=== PATIENT | female | born 1955 | race Caucasian/White ===

== ENCOUNTER → 2018-05-24 10:46 | Outpatient (CLI) | payer OTHER, SELFPAY ==
--- NOTE | 2018-05-24 | DI.ECHO.S_ITS ---
[facility]+ [facility] +---------+ : : [address] [place] : : : : [id number] : : : : Phone: [phone]+ Echocardiogram Report + + :Name: ASHLEY CHONG Study Date: 05/24/2018 Height: 68 in : :[facility] Exam Location: IS Weight: 255 lb : : Gender: Female BSA: 2.3 m2 : :: 1955 Age: 62 yrs BP: 145/78 mmHg: :Reason For Study: DILATED CM : : Performed By: Demetrius Rodriguez : :Referring: SHERICE RODRIGUEZ : + + Interpretation Summary Limited echo to evaluate wall motion. Afib with controlled rate. Normal LV size; normal wall thickness. There is global hypokinesis. EF is estimated at 40-45%. No significant valvular abnormalities. There is a pacing lead traversing the tricuspid valve. Compared to prior complete echo performed 12/06/2017, LV function is much better, up from 15-20% to 40-45% Procedure: A two-dimensional transthoracic echocardiogram with color flow and Doppler was performed. The study quality was technically adequate. Comparison is made with the echocardiogram of 02/07/18. The patient has a paced rhythm. Left Ventricle: The left ventricle is normal in size. There is normal left ventricular wall thickness. The ejection fraction is estimated to be 40-45%. There is a mild dyssynchronous contraction pattern due to the paced rhythm. Right Ventricle: The right ventricle is normal size. There is a pacemaker lead in the right ventricle. Right ventricular systolic function is mildly reduced. Aortic Valve: The aortic valve opens well. Tricuspid Valve: The tricuspid valve is not well visualized, but is grossly normal. There is trace tricuspid regurgitation. The right ventricular systolic pressure is estimated at 25 mmHg assuming a right atrial pressure of 3 mm Hg. MMode/2D Measurements & Calculations LVIDd: 5.0 cm IVC diam: 1.4 cm LVIDs: 3.5 cm FS: 28.7 % IVSd: 1.0 cm LVPWd: 0.97 cm LV harvey. diameter/BSA (cm/m^2): 2.2 LV sys. diameter/BSA (cm/m^2): 1.6 Doppler Measurements & Calculations TR max porfirio: 234.3 cm/sec TR max P.0 mmHg Reading Physician:08:47 AM
== END ==
PROVIDERS: PCP Family Medicine; Visit Provider Internal Medicine Cardiovascular Disease
DX: I42.0 Dilated cardiomyopathy (principal); I48.91 Unspecified atrial fibrillation; Z95.0 Presence of cardiac pacemaker
CPT/HCPCS: 93307

== ENCOUNTER 2018-09-26 08:13 | Emergency (ER) | payer OTHER, SELFPAY ==
[2018-09-26] VITALS (18 sets, daily range): BP systolic 116–173; BP diastolic 37–96; PULSE 36–67; RESP 10–18; TEMP 36.7; O2SAT 96–100; BMI 39.1
--- NOTE | 2018-09-26 08:17 | DI.RAD.S_ITS ---
PROCEDURE: XR CHEST 1V INDICATIONS: chest pain TECHNIQUE: One view of the chest was acquired. COMPARISON: [facility], CR, XR CHEST 2V, 03/05/2018, 14:50. [facility], CR, XR CHEST 2 VIEWS, 03/29/2018, 6:46. [facility], CR, XR CHEST 1 VIEW, 03/28/2018, 19:21. FINDINGS: Surgical changes and devices: There is a pacemaker/defibrillator. The interval cardiac pacemaker lead has migrated away from the cardiac apex. Lungs and pleura: No pleural effusions or pneumothorax. Lungs are clear. Mediastinum: Mediastinal contours appear normal. Heart size is mildly increased. Bones and chest wall: No suspicious bony lesions. Overlying soft tissues appear unremarkable. IMPRESSION: 1. No acute cardiopulmonary disease. 2. Pacemaker lead appears changed in position since the last exam with the intracardiac lead no longer projects into the left ventricle apex. Please confirm desired position with cardiology. 3. Mild cardiomegaly. The result was discussed with Dr. Darlene RODRIGUEZ prior to dictation. Dictated by: Rhiannon Narvaez M.D. on 09/26/2018 at 9:31 Approved by: Rhiannon Narvaez M.D. on 09/26/2018 at 9:37
--- NOTE | 2018-09-26 08:21 | ED_ITS ---
HPI - Arrhythmia/Palpitations General Chief Complaint: Arrhythmia/Palpitations Stated Complaint: A Fib Time Seen by Provider: 09/26/18 08:16 Source: patient and EMS Mode of arrival: EMS Limitations: no limitations History of Present Illness HPI narrative: Patient is a 62-year-old female who presents after her defibrillator went off 3 times today. She actually has had an ablation for AFib and has had 2 pacemakers placed placed. Her heart rate now 39-42. She feels weak and tired she has a bit of chest discomfort. No fever or cough. Related Data Home Medications Medication Instructions Recorded Confirmed cetirizine 10 mg PO DAILY PRN #0 05/29/17 09/26/18 metformin [Glucophage] 500 mg PO QPM 09/26/18 09/26/18 metoprolol succinate [Toprol XL] 25 mg PO BID 09/26/18 09/26/18 Previous Rx's Medication Instructions Recorded celecoxib [Celebrex] 200 mg PO 0800 PRN #30 cap 12/09/17 glimepiride 2 mg PO QAM #90 tab 01/15/18 warfarin 5 mg tablet 5 mg PO SEE INSTRUCTIONS #90 tab 08/15/18 Allergies Allergy/AdvReac Type Severity Reaction Status Date / Time influenza virus vaccine, Allergy Mild non stated Verified 09/26/18 08:18 specific [INFLUENZA VIRUS VACC,SPECIFIC] iodine [IODINE] Allergy Mild IVP DYE, Verified 09/26/18 08:18 none stated pneumococcal vaccine Allergy Mild non stated Verified 09/26/18 08:18 [PNEUMOCOCCAL VACCINE] Sulfa (Sulfonamide Allergy Mild rash,vomiti Verified 09/26/18 08:18 Antibiotics) ng [SULFA (SULFONAMIDE ANTIBIOTICS)] vancomycin [VANCOMYCIN] Allergy Mild Rash Verified 09/26/18 08:18 acetaminophen [ACETAMINOPHEN] Allergy Unknown Verified 09/26/18 08:18 Review of Systems Review of Systems All systems reviewed & are unremarkable except as noted in HPI and below Constitutional Denies chills, Denies fever(s), Denies lethargy and Denies weakness ENT Ears, Nose, Mouth, and Throat: Denies vertigo and Denies dizziness Cardiovascular Reports as per HPI, Denies dyspnea and Denies dyspnea on exertion Respiratory Denies cough, Denies dyspnea, Denies dyspnea on exertion and Denies wheezing Gastrointestinal Gastrointestinal: Denies abdominal pain, Denies change in bowel habits, Denies diarrhea, Denies nausea and Denies vomiting Musculoskeletal Denies back pain, Denies muscle weakness, Denies numbness and Denies tingling Integumentary/Breasts Denies pruritus, Denies erythema, Denies rash and Denies wounds Neurologic Denies vertigo, Denies dizziness, Denies numbness, Denies tingling and Denies weakness Allergic/Immunologic Denies wheezing PFSH Medical History Presence of combination internal cardiac defibrillator (ICD) and pacemaker ( Acute) Atrial fibrillation (Acute) Fibromyalgia (Acute) Hypertension (Acute) Hypothyroid (Acute) Social History Smoking Status: Never smoker alcohol intake: never substance use type: does not use Exam Initial Vital Signs Initial Vital Signs: Vital Signs Temperature 98.1 F 09/26/18 08:19 Pulse Rate 67 09/26/18 08:19 Respiratory Rate 18 09/26/18 08:19 Blood Pressure 148/96 H 09/26/18 08:19 Pulse Oximetry 99 09/26/18 08:19 Const General: cooperative and healthy appearing Orientation: alert, awake and oriented x3 HENMT Head: normal to inspection and normocephalic Eyes General: appearance normal, both eyes and all related structures Neck Neck: normal visual inspection, full ROM and no meningeal signs Chest Chest: normal inspection of the chest and pacemaker Resp Effort & Inspection: normal respiratory effort and able to speak in complete sentences Auscultation: clear to auscultation bilaterally, no rales, no rhonchi and no wheezes Cardio Rate: bradycardic Rhythm: abnormal rhythm Heart Sounds: S1 normal, S2 normal, no click, no gallops, no murmurs and no rubs Pulses: normal peripheral pulses GI Palpation: soft, No firm, No rigid and No tender Skin General: no rashes or lesions noted, No jaundice and No petechiae Neuro General: alert, oriented x3, gait normal and no focal motor deficits Speech: speech normal Course Orders Ordered: ED Orders 09/26/18 08:17 XR chest 1V Stat EKG-12 Lead Stat 09/26/18 08:25 Complete Blood Count AUTO DIFF Stat Comprehensive Metabolic Panel Stat Lipase Stat Partial Thromboplastin Time Stat Prothrombin Time INR Stat Troponin & CK Cardiac Panel Stat 09/26/18 14:10 UA dip and micro [Urinalysis and Microscopic] Stat Sodium Chloride (Normal Saline 0.9%) 1,000 mls @ 30 mls/hr IV CONT KLARISSA Last Admin: 09/26/18 08:40 Dose: 150 mls/hr Discontinued Medications Atropine Sulfate (Atropine) 0.5 mg IV NOW ONE Stop: 09/26/18 09:04 Last Admin: 09/26/18 09:08 Dose: 0.5 mg Atropine Sulfate (Atropine) 0.5 mg IV NOW ONE Stop: 09/26/18 09:07 Last Admin: 09/26/18 11:18 Dose: 0.5 mg Ibuprofen (Advil) 400 mg PO NOW ONE Stop: 09/26/18 09:25 Last Admin: 09/26/18 10:08 Dose: 400 mg Ibuprofen (Advil) 400 mg PO NOW ONE Stop: 09/26/18 09:30 Last Admin: 09/26/18 10:08 Dose: Vital Signs - 8 hr 09/26/18 08:19 09/26/18 08:30 09/26/18 08:54 Temperature 98.1 F Pulse Rate 67 42 L 39 L Respiratory Rate 18 15 16 Blood Pressure 148/96 H Blood Pressure [Left Arm] Blood Pressure [Right Arm] 159/50 H 155/50 H Pulse Oximetry 99 99 100 09/26/18 09:00 09/26/18 09:11 09/26/18 09:30 Temperature Pulse Rate 39 L 55 L 38 L Respiratory Rate 17 10 L 18 Blood Pressure Blood Pressure [Left Arm] 159/66 H 173/45 H 156/68 H Blood Pressure [Right Arm] Pulse Oximetry 100 100 100 09/26/18 09:48 09/26/18 10:09 09/26/18 10:55 Temperature Pulse Rate 38 L 37 L 36 L Respiratory Rate 18 15 17 Blood Pressure Blood Pressure [Left Arm] 156/68 H 139/64 137/53 L Blood Pressure [Right Arm] Pulse Oximetry 99 99 100 09/26/18 11:00 09/26/18 11:43 09/26/18 12:00 Temperature Pulse Rate 37 L 39 L 36 L Respiratory Rate 17 15 17 Blood Pressure Blood Pressure [Left Arm] 122/44 L 121/37 L 125/46 L Blood Pressure [Right Arm] Pulse Oximetry 100 100 100 09/26/18 12:10 09/26/18 13:30 09/26/18 13:50 Temperature Pulse Rate 40 L 37 L 37 L Respiratory Rate 15 16 17 Blood Pressure Blood Pressure [Left Arm] 173/45 H 124/46 L 116/94 H Blood Pressure [Right Arm] Pulse Oximetry 100 98 98 09/26/18 14:19 09/26/18 14:30 09/26/18 15:09 Temperature Pulse Rate 37 L 38 L 37 L Respiratory Rate 15 15 17 Blood Pressure Blood Pressure [Left Arm] 116/94 H 141/61 H 138/53 L Blood Pressure [Right Arm] Pulse Oximetry 97 97 96 MDM - Arrhythmia/Palpitations Lab Data Attestation: I reviewed the patient's lab results. Result diagrams: 09/26/18 08:25 09/26/18 08:25 Lab Results 09/26/18 09/26/18 09/26/18 Range/Units 08:25 08:25 08:25 WBC 6.3 (4.5-11.0) X10^3/uL RBC 4.91 (4.0-5.2) X10^6/uL Hgb 16.1 H (12.0-16.0) g/dL Hct 47.9 H (36-46) % MCV 97.7 (80-100) fL MCH 32.8 (26-34) PG MCHC 33.6 (30-36) % RDW 13.6 (11.6-14.8) % Plt Count 168 (150-400) X10^3/uL Neut % (Auto) 69.3 (50-75) % Lymph % (Auto) 22.9 L (25-40) % Morehouse % (Auto) 6.4 (3-14) % Eos % (Auto) 0.7 L (2-4) % Baso % (Auto) 0.7 (0-2) % Neut # (Auto) 4400 (9743-5955) /uL PT 22.4 H (10.1-12.7) SECONDS INR 1.9 H (0.9-1.3) APTT 37 H (26.4-36.2) SECONDS Sodium 140 (137-145) mmol/L Potassium 4.7 (3.4-5.1) mmol/L Chloride 105 (98-107) mmol/L Carbon Dioxide 22 (22-32) mmol/L BUN 17 (7-17) mg/dL Creatinine 1.00 (0.52-1.04) mg/dL Estimated GFR 56.2 L (>60) mL/min BUN/Creatinine Ratio 17.0 (6-22) Glucose 170 H (80-110) mg/dL Calcium 9.7 (8.4-10.2) mg/dL Total Bilirubin 0.6 (0.2-1.3) mg/dL AST 36 (14-36) IU/L ALT 38 (9-52) IU/L Alkaline Phosphatase 119 (38-126) U/L Total Creatine Kinase 101 (30-135) U/L CK-MB (CK-2) 2.91 H (<2.37) ng/mL CK-MB (CK-2) Rel Index 2.9 (1.5-5.0) % Troponin I 0.046 H (0.01-0.034) ng/mL Total Protein 7.2 (6.3-8.2) g/dL Albumin 4.3 (3.5-5.0) g/dL Globulin 2.9 (1.7-4.1) g/dL Albumin/Globulin Ratio 1.5 (1.0-2.8) Lipase 105 (23-300) U/L Urine Color Urine Appearance Urine pH (4.5-8.0) Ur Specific Francisco (1.000-1.035) Urine Protein (Negative) Urine Glucose (UA) (Normal) g/dL Urine Ketones (NEGATIVE) Urine Occult Blood (Negative) Urine Nitrate (Negative) Urine Bilirubin (NEGATIVE) Urine Urobilinogen (0.2) E.U./dL Ur Leukocyte Esterase (NEGATIVE) Urine RBC (0-5/HPF) Urine WBC (0-5/HPF) Ur Squamous Epith Cells Amorphous Sediment Urine Bacteria (None) Urine Mucus (Negative) Ur Culture Indicated? Micro UA Comment 09/26/18 Range/Units 14:10 WBC (4.5-11.0) X10^3/uL RBC (4.0-5.2) X10^6/uL Hgb (12.0-16.0) g/dL Hct (36-46) % MCV (80-100) fL MCH (26-34) PG MCHC (30-36) % RDW (11.6-14.8) % Plt Count (150-400) X10^3/uL Neut % (Auto) (50-75) % Lymph % (Auto) (25-40) % Morehouse % (Auto) (3-14) % Eos % (Auto) (2-4) % Baso % (Auto) (0-2) % Neut # (Auto) (0209-3041) /uL PT (10.1-12.7) SECONDS INR (0.9-1.3) APTT (26.4-36.2) SECONDS Sodium (137-145) mmol/L Potassium (3.4-5.1) mmol/L Chloride (98-107) mmol/L Carbon Dioxide (22-32) mmol/L BUN (7-17) mg/dL Creatinine (0.52-1.04) mg/dL Estimated GFR (>60) mL/min BUN/Creatinine Ratio (6-22) Glucose (80-110) mg/dL Calcium (8.4-10.2) mg/dL Total Bilirubin (0.2-1.3) mg/dL AST (14-36) IU/L ALT (9-52) IU/L Alkaline Phosphatase (38-126) U/L Total Creatine Kinase (30-135) U/L CK-MB (CK-2) (<2.37) ng/mL CK-MB (CK-2) Rel Index (1.5-5.0) % Troponin I (0.01-0.034) ng/mL Total Protein (6.3-8.2) g/dL Albumin (3.5-5.0) g/dL Globulin (1.7-4.1) g/dL Albumin/Globulin Ratio (1.0-2.8) Lipase (23-300) U/L Urine Color Yellow Urine Appearance Cloudy Urine pH 5.5 (4.5-8.0) Ur Specific Francisco 1.025 (1.000-1.035) Urine Protein Trace H (Negative) Urine Glucose (UA) Negative (Normal) g/dL Urine Ketones Negative (NEGATIVE) Urine Occult Blood Trace-lysed (Negative) Urine Nitrate Negative (Negative) Urine Bilirubin Negative (NEGATIVE) Urine Urobilinogen 0.2 (0.2) E.U./dL Ur Leukocyte Esterase 1+ H (NEGATIVE) Urine RBC 0-1/hpf (0-5/HPF) Urine WBC 5-10/hpf H (0-5/HPF) Ur Squamous Epith Cells 10-30 /hpf H D Amorphous Sediment 1+ Urine Bacteria Moderate (10-30) H (None) Urine Mucus 1+ H (Negative) Ur Culture Indicated? Cult not indicated Micro UA Comment Not Reportable Point of Care Testing Glucose POC 96 Imaging Data Chest x-ray: Attestation: I personally reviewed and interpreted this imaging study as follows: My impression: LV lead appears kinked No fracture of leads Radiologist's impression: PROCEDURE: XR CHEST 1V INDICATIONS: chest pain TECHNIQUE: One view of the chest was acquired. COMPARISON: [facility], CR, XR CHEST 2V, 03/05/2018, 14:50. [facility], CR, XR CHEST 2 VIEWS, 03/29/2018, 6:46. [facility], CR, XR CHEST 1 VIEW, 03/28/2018, 19:21. FINDINGS: Surgical changes and devices: There is a pacemaker/defibrillator. The interval cardiac pacemaker lead has migrated away from the cardiac apex. Lungs and pleura: No pleural effusions or pneumothorax. Lungs are clear. Mediastinum: Mediastinal contours appear normal. Heart size is mildly increased. Bones and chest wall: No suspicious bony lesions. Overlying soft tissues appear unremarkable. IMPRESSION: 1. No acute cardiopulmonary disease. 2. Pacemaker lead appears changed in position since the last exam with the intracardiac lead no longer projects into the left ventricle apex. Please confirm desired position with cardiology. 3. Mild cardiomegaly. The result was discussed with Dr. Darlene RODRIGUEZ prior to dictation. Dictated by: Rhiannon Narvaez M.D. on 09/26/2018 at 9:31 ECG Data Attestation: I personally reviewed and interpreted this ECG as follows: Prior ECG tracings: available for review Interpretation: EKG 1. No pacer spikes PVC noted bradycardia rate 43 AV block EKG 2. Third-degree AV block rate 38 PVC MDM Narrative Medical decision making narrative: Dr. Conklin aware the patient is in the ED. Aware that lead is dislodged. It has been dislodged twice now. Recommend placing magnet over pacemaker to stop it from firing. [place] tech on way to evaluate [place] tech has turned off the defibrillator function. Unable to pace due to electrode lead malfunction and dislodgement Dr. Conklin requests patient be transferred to [facility] Dr. Conklin called back saying that both leads RV and LV lead have been dislodged she is AV ariel ablation and pacemaker dependent. At this time recommends patient be transferred where there is CVT surgery [facility] does not have beds Dr. George at [facility] has been updated on patient's symptoms test results, recommended referral back to Dr. Katerin Conklin called talk to mobile application engineer at [facility]. They are making arrangements for patient to go to [facility]. Awaiting to hear from mobile application engineer Dr. Tavares, mobile application engineer at [facility] accepts patient spoken to him directly Patient's heart rate has really remained in the 30s the entire time while in the ED. She rate is asymptomatic though she is extremely tired. She does is wake up and converse normally. She has family at bedside who will let her fall sleep. Blood pressure has remained stable. She did not respond well to atropine due to AV ariel ablation. Critical Care Time Critical Care Time: Yes Total Critical Care Time: 45 Attestation: The high probability of a clinically significant, sudden or life threatening deterioration of the [cardiovascular] system(s) required my full and direct attention, intervention and personal management. The aggregate critical care time was [45] minutes. This time is in addition to time spent performing reported procedures but includes the following: [x] Data Review and interpretation [x] Patient assessment and monitoring of vital signs [x] Documentation [x] Medication orders and management Discharge Plan Departure Patient Disposition: [facility] Clinical Impression: Malfunction of electrode lead of cardiac pacemaker, Bradycardia Interventions: ED Discharge Assessment Last Done: 09/26/18 14:22 Prescriptions: No Action cetirizine 10 MG tablet 10 mg PO DAILY PRN (Reason: Allergy Symptoms) Qty: 0 RF: 0 celecoxib [Celebrex] 200 MG capsule 200 mg PO 0800 PRNQty: 30 RF: 3 glimepiride 2 MG tablet 2 mg PO QAM Qty: 90 RF: 3 warfarin [Coumadin] 5 mg tablet 5 mg PO SEE INSTRUCTIONS Qty: 90 RF: 3 metoprolol succinate [Toprol XL] 25 MG tablet extended release 24 hr 25 mg PO BID RF: 0 metformin [Glucophage] 500 MG tablet 500 mg PO QPM RF: 0
[2018-09-26 08:38] LABS: Add Manual Diff / Slide Review NO; Basophils Percent Auto 0.7 % (0-2); Eosinophils Percent Auto 0.7 % (2-4); Hematocrit 47.9 % (36-46); Hemoglobin 16.1 g/dL (12.0-16.0); Lymphocytes Percent Auto 22.9 % (25-40); Mean Corpuscular HGB Conc 33.6 % (30-36); Mean Corpuscular Hemoglobin 32.8 PG (26-34); Mean Corpuscular Volume 97.7 fL (80-100); Monocytes Percent Auto 6.4 % (3-14); Neutrophils Absolute Auto 4400 /uL (3000-5900); Neutrophils Percent Auto 69.3 % (50-75); Platelet Count 168 X10^3/uL (150-400); Red Blood Cell Count 4.91 X10^6/uL (4.0-5.2); Red Cell Distribution Width 13.6 % (11.6-14.8); White Blood Cell Count 6.3 X10^3/uL (4.5-11.0)
[2018-09-26] MEDS: SODIUM CHLORIDE 0.9% 1,000 ML 150 ML IV (08:40)
[2018-09-26 08:46] LABS: INR 1.9 (0.9-1.3); Prothrombin Time 22.4 SECONDS (10.1-12.7)
[2018-09-26 08:48] LABS: PTT Partial Thromboplastin Tim 37 SECONDS (26.4-36.2)
[2018-09-26 08:50] LABS: Alanine Aminotransferase 38 IU/L (9-52); Albumin 4.3 g/dL (3.5-5.0); Albumin Globulin Ratio 1.5 (1.0-2.8); Alkaline Phosphatase 119 U/L (38-126); Aspartate Aminotransferase 36 IU/L (14-36); Bilirubin Total 0.6 mg/dL (0.2-1.3); Blood Urea Nitrogen 17 mg/dL (7-17); Calcium 9.7 mg/dL (8.4-10.2); Carbon Dioxide 22 mmol/L (22-32); Chloride 105 mmol/L (98-107); Creatine Kinase 101 U/L (30-135); Estimated Glomerular Filt Rate 56.2 mL/min (>60); Globulin 2.9 g/dL (1.7-4.1); Glucose 170 mg/dL (80-110); HEMOLYSIS < 15 (0-50); Lipase 105 U/L (23-300); Potassium 4.7 mmol/L (3.4-5.1); Sodium 140 mmol/L (137-145); Total Protein 7.2 g/dL (6.3-8.2)
--- NOTE | 2018-09-26 08:50 | PC.NURSE ---
while sitting this morning felt shock [phone], then feeling tired. pacemaker , no problem since april, till today. denies chest pain, shortness of breath, felt fine yesterday. denies injury. on arrival [facility] interogator applied , sent without difficulty.
[2018-09-26 09:07] LABS: CKMB % Relative Index 2.9 % (1.5-5.0); Creatine Kinase MB 2.91 ng/mL (<2.37)
[2018-09-26] MEDS: ATROPINE 1 MG/10 ML SYRINGE 0.5 MG IV ×2 (09:08→11:18)
[2018-09-26 09:38] LABS: Troponin I 0.046 ng/mL (0.01-0.034)
--- NOTE | 2018-09-26 09:49 | PC.NURSE ---
pt remain alert and c\o tired no other associated sxs. hr 38 bp 156/68. skin warm dry pink. family at .
[2018-09-26] MEDS: IBUPROFEN 400 MG TABLET PO (10:08)
--- NOTE | 2018-09-26 11:19 | PC.NURSE ---
tech states, internal defibrilator turned off, unable to reset pacemaker rate. dr pollock aware.
--- NOTE | 2018-09-26 12:12 | PC.NURSE ---
paced at 35 , only sxs tired
--- NOTE | 2018-09-26 14:13 | PC.NURSE ---
tolerated well, dark yellow urine.
[2018-09-26 15:16] LABS: Appearance Urine UA CLOUDY; Bilirubin Urine UA NEGATIVE (NEGATIVE); Color Urine UA YELLOW; Glucose Urine UA NEGATIVE (Normal); Ketones Urine UA NEGATIVE (NEGATIVE); Leukocyte Esterase Urine UA 1+ (NEGATIVE); Nitrite Urine UA NEGATIVE (Negative); Occult Blood Urine UA TRACE-LYSED (Negative); Protein Urine UA TRACE (Negative); Specific Gravity Urine UA 1.025 (1.000-1.035); Urobilinogen Urine UA 0.2 E.U./dL (0.2); pH Urine UA 5.5 (4.5-8.0)
[2018-09-26 15:32] LABS: Amorphous Sediment Urine 1+; Bacteria Urine Moderate (10-30); Culture Indicated Urine Cult Not Indicated; Mucus Urine 1+ (Negative); RBC Urine 0-1/HPF (0-5/HPF); Squamous Epithelial Cell Urine 10-30 /HPF; WBC Urine 5-10/HPF (0-5/HPF)
[2018-09-26] MEDS: SODIUM CHLORIDE 0.9% 1,000 ML 30 ML IV (15:53)
== END 2018-09-26 15:54 | disposition short-term general hospital (02) ==
PROVIDERS: Emergency Provider Emergency Medicine; PCP Family Medicine
DX: T82.190A Other mechanical complication of cardiac electrode, initial encounter (principal); R00.1 Bradycardia, unspecified
CPT/HCPCS: 36591; 71045; 80053; 81001; 82550; 82553; 82962; 83690; 84484; 85025; 85610; 85730; 93005; 93010; 93041; 96361; 96374; 96376; 99285; J0461

== ENCOUNTER 2019-02-25 13:11 | Observation (INO) | payer OTHER, SELFPAY ==
--- NOTE | 2019-02-25 | DI.US.S_ITS ---
PROCEDURE: US PERIPH VENOUS UP EXTREM LT INDICATIONS: ARM EDEMA TECHNIQUE: Real-time imaging, as well as color and pulse Doppler interrogation, was performed of the left upper extremity deep veins from the inferior neck to the antecubital fossa. COMPARISON: None. FINDINGS: The internal jugular vein, visualized portions of the subclavian vein, axillary, and brachial veins are free of intraluminal thrombus. Where physically possible, the veins are normally compressible. Color and pulse Doppler demonstrate normal intraluminal flow, with expected phasicity and pulsatility. Additional scanning of the cephalic and basilic veins of the superficial system demonstrate normal compressibility, without thrombus. IMPRESSION: No deep vein thrombosis of the left upper extremity. Dictated by: Whit Talavera M.D. on 02/25/2019 at 21:32 Approved by: Whit Talavera M.D. on 02/25/2019 at 21:32
[2019-02-25 13:18] VITALS: BP 164/90; PULSE 70; RESP 16; TEMP 36.8; O2SAT 100; BMI 41.0
--- NOTE | 2019-02-25 13:51 | PC.NURSE ---
Pt has left sided facial droop from prior stroke, daughter feels it is more pronounced, according to patient, coworkers have noticed this gradually throughout the morning. NIH is 2. daughter states no difference in speech pattern. Left arm discoloration and mild sensation differences. Pt says she has had ultrasound to RO blood clot previously, feels that the sensation change is new.
--- NOTE | 2019-02-25 13:53 | ED_ITS ---
HPI - Altered Mental Status General Chief Complaint: Altered Mental Status Stated Complaint: Confusion Time Seen by Provider: 02/25/19 13:53 Source: patient and family Mode of arrival: EMS Limitations: no limitations History of Present Illness HPI narrative: Patient is a 63-year-old female who several years ago sustained a CVA. She stated that she does have some left-sided facial weakness from this. She does have a pacemaker in place secondary to atrial fibrillation. She is currently on Coumadin. Patient is here with her daughter who stated that last evening she thought that the patient was potentially slurring her words more than normal. she stated that this morning she thought that the patient was pot entially having some more droop in the left side of her face. When the patient went to work her coworkers agreed that she was slurring her words more than normal and also having some drooping left side of her face. The patient denied any acknowledgement of the symptoms. she was brought here to the emergency department for evaluation. The patient's daughter was at bedside states that at the time of my evaluation she thought that the patient was slurring her words more than normal however it had improved since this morning. Related Data Home Medications Medication Instructions Recorded Confirmed celecoxib [Celebrex] 200 mg PO DAILY 02/25/19 02/25/19 glimepiride 2 mg PO QAM 02/25/19 02/25/19 lisinopril 10 mg PO DAILY 02/25/19 02/25/19 metformin 500 mg PO QPM 02/25/19 02/25/19 metoprolol tartrate 25 mg PO BID 02/25/19 02/25/19 warfarin 2.5 mg PO SUTUTHSA 02/25/19 02/25/19 warfarin 5 mg PO QMWF 02/25/19 02/25/19 Allergies Allergy/AdvReac Type Severity Reaction Status Date / Time influenza virus vaccine ts Allergy Unknown Verified 02/25/19 15:11 [id number] (36 mos,up) [From Fluarix] Iodinated Contrast- Oral and Allergy Unknown Verified 02/25/19 15:11 IV Dye pneumococcal vaccine Allergy Unknown Verified 02/25/19 15:11 Sulfa (Sulfonamide Allergy Unknown Verified 02/25/19 15:11 Antibiotics) Review of Systems Constitutional Denies fever(s) and Denies headache(s) Eyes Denies itchy eyes ENT Ears, Nose, Mouth, and Throat: Denies vertigo, Denies dizziness, Denies headache(s) and Denies disequilibrium Cardiovascular Denies chest pain, Denies palpitations and Denies dyspnea Respiratory Denies dyspnea Gastrointestinal Gastrointestinal: Denies abdominal pain, Denies nausea and Denies vomiting Musculoskeletal Denies myalgias and Denies arthralgias Integumentary/Breasts Denies rash Neurologic Reports abnormal speech, Denies vertigo, Denies dizziness, Denies headache(s), Denies tremor(s) and Denies disequilibrium Comments: Drooping of left-sided face Endocrine Denies palpitations Hematologic/Lymphatic Comments: On Coumadin Allergic/Immunologic Denies urticaria and Denies itchy eyes Exam Initial Vital Signs Initial Vital Signs: Vital Signs Temperature 98.3 F 02/25/19 13:18 Pulse Rate 70 02/25/19 13:18 Respiratory Rate 16 02/25/19 13:18 Blood Pressure 164/90 H 02/25/19 13:18 Pulse Oximetry 100 02/25/19 13:18 Const General: cooperative, healthy appearing, comfortable, well developed, well groomed and No acute distress Orientation: alert, awake and oriented x3 HENKS Head: normal to inspection and normocephalic Resp Effort & Inspection: normal respiratory effort Auscultation: clear to auscultation bilaterally Cardio Rate: regular rate Rhythm: regular rhythm Pulses: radial pulses present GI Inspection: non-distended Palpation: soft Skin Lesions: no lesions Rashes: no rashes Neuro General: alert, awake and oriented x3 Cognition: normal cognition Speech: other (Slight slurring of words) Gait: normal gait Motor: muscle tone normal throughout Sensory Exam: no sensory deficits noted Extrem General: normal to inspection and capillary refill normal Psych Appearance: grossly normal and well kempt Scores ABCD2 Age >= 60 years: yes Initial BP. Either SBP >= 140 or DBP >= 90.: yes Clinical features of the TIA: speech disturbance without weakness Duration of symptoms: >= 60 minutes History of diabetes: yes ABCD2 Score: 6 GCS Jacqueline coma scale eye opening: Spontaneous Jacqueline coma scale verbal response: Orientated Jacqueline coma scale motor response: Obey commands Jacqueline coma scale total score: 15 NIH Stroke Scale Level of Conciousness: Alert, keenly responsive Ask month/age: Answers both questions correctly. Open/close eyes, close hand: Performs both tasks correctly Best gaze horizontal: Normal Visual bella: No visual loss Facial palsy: Minor paralysis, flattened nasolabial fold, asymmetry on smiling Left arm drift: No drift for full 10 sec Right arm drift: No drift for full 10 sec Left leg drift: No drift for full 10 sec Right leg drift: No drift for full 10 sec Limb ataxia: Absent Sensory on face/arms/legs: Mild to moderate sensory loss, can tell touch Best language: Mild to moderate, slurs some words Dysarthria: Normal Extinction or inattention: No abnormality Total NIH Stroke scale score: 3 Course Orders Ordered: ED Orders 02/25/19 13:59 CT head/brain wo con Stat 02/25/19 14:25 Complete Blood Count AUTO DIFF Stat Comprehensive Metabolic Panel Stat Partial Thromboplastin Time Stat Prothrombin Time INR Stat Troponin I Stat 02/25/19 14:31 EKG-12 Lead Stat 02/25/19 18:49 Consult to Discharge Planning Routine Consult to Occupational Therapy Evaluate & Treat Consult to Physical Therapy Evaluate & Treat Consult to Speech Therapy Evaluate & Treat Acetaminophen (Tylenol) 650 mg PO Q6HR PRN PRN Reason: Fever Labetalol HCl (Trandate) 10 mg IV Q4HR PRN PRN Reason: Blood Pressure - High Vital Signs - 8 hr 02/25/19 13:18 02/25/19 14:30 02/25/19 16:00 Temperature 98.3 F 98.2 F Pulse Rate 70 92 H 71 Respiratory Rate 16 18 15 Blood Pressure 164/90 H Blood Pressure [Right Arm] 152/86 H 155/71 H Pulse Oximetry 100 97 99 02/25/19 18:23 02/25/19 19:07 Temperature 97.8 F Pulse Rate 70 70 Respiratory Rate 18 17 Blood Pressure 171/90 H Blood Pressure [Right Arm] 166/75 H Pulse Oximetry 98 98 MDM - Altered Mental Status Lab Data Attestation: I reviewed the patient's lab results. Result diagrams: 02/25/19 14:25 02/25/19 14:25 Lab Results 02/25/19 02/25/19 02/25/19 Range/Units 14:25 14:25 14:25 WBC 6.9 (4.5-11.0) X10^3/uL RBC 5.02 (4.0-5.2) X10^6/uL Hgb 16.0 (12.0-16.0) g/dL Hct 48.1 H (36-46) % MCV 95.8 (80-100) fL MCH 31.9 (26-34) PG MCHC 33.3 (30-36) % RDW 13.6 (11.6-14.8) % Plt Count 177 (150-400) X10^3/uL Neut % (Auto) 61.4 (50-75) % Lymph % (Auto) 29.7 (25-40) % [place] % (Auto) 7.1 (3-14) % Eos % (Auto) 0.6 L (2-4) % Baso % (Auto) 1.2 (0-2) % Neut # (Auto) 4300 (1855-6994) /uL Lymph # (Auto) 2100 (3356-6012) /uL [place] # (Auto) 500 (0-900) /uL Eos # (Auto) 0 (0-450) /uL Baso # (Auto) 100 (0-100) /uL PT 20.9 H (10.1-12.7) SECONDS INR 1.8 H (0.9-1.3) APTT 38 H (26.4-36.2) SECONDS Sodium 138 (137-145) mmol/L Potassium 5.0 (3.4-5.1) mmol/L Chloride 107 (98-107) mmol/L Carbon Dioxide 21 L (22-32) mmol/L BUN 20 H (7-17) mg/dL Creatinine 0.90 (0.52-1.04) mg/dL Estimated GFR > 60.0 (>60) mL/min BUN/Creatinine Ratio 22.2 H (6-22) Glucose 166 H (80-110) mg/dL Calcium 9.4 (8.4-10.2) mg/dL Total Bilirubin 0.5 (0.2-1.3) mg/dL AST 26 (14-36) IU/L ALT 22 (9-52) IU/L Alkaline Phosphatase 107 (38-126) U/L Troponin I 0.014 (0.01-0.034) ng/mL Total Protein 7.0 (6.3-8.2) g/dL Albumin 4.0 (3.5-5.0) g/dL Globulin 3.0 (1.7-4.1) g/dL Albumin/Globulin Ratio 1.3 (1.0-2.8) Urine Dip Bedside Urine Glucose Negative Bedside Urine Bilirubin - Negative Bedside Urine Ketone - Negative Urine Specific [place] 1.030 Bedside Urine Occult Blood - Negative Bedside Urine pH 6.0 Bedside Urine Protein +/- 15 Bedside Urine Urobilinogen - Negative Bedside Urine Nitrite - Negative Bedside Urine Leukocytes - Negative Esterase Imaging Data CT scan - head: Radiologist's impression: [address] [address] [address] Scan Report Signed Patient: Anabela Godwin [facility]#: [id number] : 6Acct:[id number] Age/Sex: 63 / FDate of Service: 02/25/19 Loc: ED Accession Number: [id number] Procedure: CT head/brain wo con Ordering Provider: Jaison Valenzuela D.O. PROCEDURE: CT HEAD/BRAIN WO CON INDICATIONS: History of CVA with left-sided facial droop TECHNIQUE: Noncontrast 4.5 mm thick angled axial sections acquired from the foramen magnum to the vertex, with coronal and sagittal reformats. For radiation dose reduction, the following was used: automated exposure control, adjustment of mA and/or kV according to patient size. COMPARISON: None. FINDINGS: Image quality: Excellent. CSF spaces: Basal cisterns are patent. No extra-axial fluid collections. The ventricles are symmetric in size and shape. Brain: No intracranial bleeds or masses. There is cerebral volume loss for age, with resultant ventricular and sulcal prominence. There is a territorial infarct involving the right frontal lobe and a portion of the right temporal lobe. There are periventricular and deep white matter chronic small vessel ischemic changes. There is intracranial internal carotid artery atherosclerosis. Skull and face: Calvarium and visualized facial bones appear intact, without suspicious lesions. Sinuses: Visualized sinuses and mastoids are clear. IMPRESSION: No definite acute abnormality is seen. Remote right MCA territory infarction. If there is strong clinical suspicion for an acute stroke, please consider an MRI for further evaluation, as it is more sensitive (assuming that there is no contraindication to MRI). Dictated by: Joe Martinez M.D. on 02/25/2019 at 13:33 Approved by: Joe Martinez M.D. on 02/25/2019 at 13:34 ECG Data Attestation: I personally reviewed and interpreted this ECG as follows: Prior ECG tracings: not available for review Interpretation: Ventricular pacemaker Rate is 69 Left axis deviation QRS [address] T wave changes MDM Narrative Medical decision making narrative: Head CT shows no signs of acute stroke. NIH score 3. There is some question as to whether not her symptoms were actually present last evening. Patient's daughter also states that even though she is not back to normal her symptoms have improved somewhat since this morning. Patient's INR is 1.8. She states that her last INR check was 2.4 but that was approximately 1 month ago. She is taking her Coumadin. She stated that she thinks that she has had a carotid Doppler in September of last year but is unsure. She states that she thinks her last echocardiogram was in April of last year. Her symptoms today do sound consistent with a TIA. Patient has a ABCD2 score of 6. Given her presentation and her history and her risk factors will admit for further evaluation and treatment. Discussed the case with the hospitalist who expressed understanding and will admit. Discussed the admission with the patient and the daughter bedside expressed understanding and agreement. Discharge Plan Departure Patient Disposition: Admitted as Observation Clinical Impression: TIA (transient ischemic attack) Discharge Date/Time: 02/25/19 18:30 Admit Date/Time: 02/25/19 16:17 Admit Provider: Sharona Goode
--- NOTE | 2019-02-25 13:59 | DI.CT.S_ITS ---
PROCEDURE: CT HEAD/BRAIN WO CON INDICATIONS: History of CVA with left-sided facial droop TECHNIQUE: Noncontrast 4.5 mm thick angled axial sections acquired from the foramen magnum to the vertex, with coronal and sagittal reformats. For radiation dose reduction, the following was used: automated exposure control, adjustment of mA and/or kV according to patient size. COMPARISON: None. FINDINGS: Image quality: Excellent. CSF spaces: Basal cisterns are patent. No extra-axial fluid collections. The ventricles are symmetric in size and shape. Brain: No intracranial bleeds or masses. There is cerebral volume loss for age, with resultant ventricular and sulcal prominence. There is a territorial infarct involving the right frontal lobe and a portion of the right temporal lobe. There are periventricular and deep white matter chronic small vessel ischemic changes. There is intracranial internal carotid artery atherosclerosis. Skull and face: Calvarium and visualized facial bones appear intact, without suspicious lesions. Sinuses: Visualized sinuses and mastoids are clear. IMPRESSION: No definite acute abnormality is seen. Remote right MCA territory infarction. If there is strong clinical suspicion for an acute stroke, please consider an MRI for further evaluation, as it is more sensitive (assuming that there is no contraindication to MRI). Dictated by: Joe Martinez M.D. on 02/25/2019 at 13:33 Approved by: Joe Martinez M.D. on 02/25/2019 at 13:34
[2019-02-25 14:30] VITALS: BP 152/86; PULSE 92; RESP 18; TEMP 36.8; O2SAT 97
[2019-02-25 14:45] LABS: Add Manual Diff / Slide Review NO; Basophils Absolute Auto 100 /uL (0-100); Basophils Percent Auto 1.2 % (0-2); Eosinophils Absolute Auto 0 /uL (0-450); Eosinophils Percent Auto 0.6 % (2-4); Hematocrit 48.1 % (36-46); INR 1.8 (0.9-1.3); Lymphocytes Absolute Auto 2100 /uL (1100-4500); Lymphocytes Percent Auto 29.7 % (25-40); Mean Corpuscular HGB Conc 33.3 % (30-36); Mean Corpuscular Hemoglobin 31.9 PG (26-34); Mean Corpuscular Volume 95.8 fL (80-100); Monocytes Absolute Auto 500 /uL (0-900); Monocytes Percent Auto 7.1 % (3-14); Neutrophils Absolute Auto 4300 /uL (1500-7000); Neutrophils Percent Auto 61.4 % (50-75); Platelet Count 177 X10^3/uL (150-400); Prothrombin Time 20.9 SECONDS (10.1-12.7); Red Blood Cell Count 5.02 X10^6/uL (4.0-5.2); Red Cell Distribution Width 13.6 % (11.6-14.8); White Blood Cell Count 6.9 X10^3/uL (4.5-11.0)
[2019-02-25 14:48] LABS: PTT Partial Thromboplastin Tim 38 SECONDS (26.4-36.2)
[2019-02-25 14:50] LABS: Carbon Dioxide 21 mmol/L (22-32); Sodium 138 mmol/L (137-145)
[2019-02-25 15:01] LABS: Troponin I 0.014 ng/mL (0.01-0.034)
[2019-02-25 15:09] LABS: Alanine Aminotransferase 22 IU/L (9-52); Albumin Globulin Ratio 1.3 (1.0-2.8); Alkaline Phosphatase 107 U/L (38-126); Aspartate Aminotransferase 26 IU/L (14-36); BUN Creatinine Ratio 22.2 (6-22); Bilirubin Total 0.5 mg/dL (0.2-1.3); Blood Urea Nitrogen 20 mg/dL (7-17); Calcium 9.4 mg/dL (8.4-10.2); Chloride 107 mmol/L (98-107); Estimated Glomerular Filt Rate > 60.0 mL/min (>60); Glucose 166 mg/dL (80-110); HEMOLYSIS 46 (0-50)
[2019-02-25 16:00] VITALS: BP 155/71; PULSE 71; RESP 15; O2SAT 99
[2019-02-25 18:23] VITALS: BP 166/75; PULSE 70; RESP 18; O2SAT 98
[2019-02-25 18:59] VITALS: BMI 41.0
[2019-02-25 19:07] VITALS: BP 171/90; PULSE 70; RESP 17; TEMP 36.6; O2SAT 98
--- NOTE | 2019-02-25 19:13 | PC.ADMIT ---
[facility] Admission Note: The patient,Anabela Godwin,63 y/o, was given written information regarding hospital policies, unit procedures and contact persons. Patient's smoking status: Former smoker. Vital Signs - 8 hr 02/25/19 13:18 02/25/19 14:30 02/25/19 16:00 Temperature 98.3 F 98.2 F Pulse Rate 70 92 H 71 Respiratory Rate 16 18 15 Blood Pressure 164/90 H Blood Pressure [Right Arm] 152/86 H 155/71 H Pulse Oximetry 100 97 99 02/25/19 18:23 02/25/19 19:07 Temperature 97.8 F Pulse Rate 70 70 Respiratory Rate 18 17 Blood Pressure 171/90 H Blood Pressure [Right Arm] 166/75 H Pulse Oximetry 98 98 Pt arrived from ED via stretcher and was able get off of the stretcher and ambulate to ac bed, gait steady. Pt A&O, calm and cooperative.
--- NOTE | 2019-02-25 19:57 | P.HP_ITS ---
History of Present Illness Chief complaint: Confusion Narrative: The patient is a 63-year-old female with PMH of prior HTN, CVA (s/ thrombectomy, 2011), TIA, afib (s/p ppm/aicd implant), chronic anti- coagulation (coumadin), pre-diabetes, IJEOMA (not on CPAP), fibromyalgia, and morbid obesity. Patient presented for evaluation per family's request out of concern for a left- sided facial droop. Patient was noted to have an episode left-sided facial droop and slurred speech at 9pm on 02/24/2019 and once again this morning. Patient has a prior history of CVA (s/p thrombectomy, 2011) with reported residual left facial droop, left lower extremity weakness, and slurred speech. Patient's residual deficits are very subtle. At time of the aforementioned event patient thought to have more prominent facial droop and slurring of s peech. Patient herself has not noticed difference from baseline. Patient herself does not endorse change in vision, dizziness, lightheadedness, syncopal events, chest pain, palpitations, abdominal pain, or gastrointestinal distress. Recently has been experiencing a headache in the occipital region. Reports fatigue for the past 3 days and restless legs/difficulty sleeping (this is unusual for the patient). In addition has been having left upper extremity edema. Patient has a ppm/AICD for an underlying AFIB / cardiomyopathy. She has had trouble in the past with pacemaker leads and defibrillator discharge, this has not happened recently. Patient is chronically anti-coagulated w/ Warfarin. INR level on presentation is 1.8 (subtherapeutic). Patient notes additional symptoms of fatigue for the past 3 days. No fever or chills. No abdominal pain or GI distress. Patient does not check her blood pressure home. Reports adherence to home medications. ED presentation, workup WBC 6.9 HGB 16.0 HCT 48.1 PLT 177 PT 20.9 INR 1.8 aPTT 38 Na 138 K 5.0 Cl 107 Ca 9.4 Glu 166 CO2 21 BUN 20 Cr 0.9 BUN : Cr 22.2 liver enzyme wnl Trop 0.014 CT Head, no definite acute abnormality seen, remote right MCA territory inf arction. Patient History Medical History (Updated 02/25/19 @ 22:33 by ALANIS Hyman) Allergic rhinitis (Chronic) Atrial fibrillation (Chronic) CVA (cerebral vascular accident) (Chronic) Fibromyalgia (Chronic) IJEOMA (obstructive sleep apnea) (Chronic) Surgical History (Updated 02/25/19 @ 21:14 by ALANIS Hyman) History of permanent cardiac pacemaker placement (Chronic) Family History (Updated 02/25/19 @ 22:02 by ALANIS Hyman) Mother No known health problems Father No known health problems Social History household members: children Smoking Status: Former smoker alcohol intake: current Family & Social History Social History: household members children Prior Living Arrangements House Safety & Behavioral: Feels Safe in Current Yes Environment Been Physically Hurt or No Threatened By a Person Suicidal Ideation Description None Suicide Plan Description No Plan Tobacco & Substance use: Smoking Status Former smoker alcohol intake current alcohol intake frequency holiday/special occasion Substance Use Type does not use Meds Home Medications Medication Instructions Recorded Confirmed Type celecoxib [Celebrex] 200 mg PO DAILY 02/25/19 02/25/19 History glimepiride 2 mg PO QAM 02/25/19 02/25/19 History lisinopril 10 mg PO DAILY 02/25/19 02/25/19 History metformin 500 mg PO QPM 02/25/19 02/25/19 History metoprolol tartrate 25 mg PO BID 02/25/19 02/25/19 History warfarin 2.5 mg PO SUTUTHSA 02/25/19 02/25/19 History warfarin 5 mg PO QMWF 02/25/19 02/25/19 History Allergies Allergy/AdvReac Type Severity Reaction Status Date / Time influenza virus vaccine ts Allergy Unknown Verified 02/25/19 15:11 [id number] (36 mos,up) [From Fluarix] Iodinated Contrast- Oral and Allergy Unknown Verified 02/25/19 15:11 IV Dye pneumococcal vaccine Allergy Unknown Verified 02/25/19 15:11 Sulfa (Sulfonamide Allergy Unknown Verified 02/25/19 15:11 Antibiotics) Review of Systems Review of Systems All systems reviewed & are unremarkable except as noted in HPI and below Exam Vital Signs (past 8 hours): - 02/25/19 13:18 02/25/19 14:30 02/25/19 16:00 Temperature 98.3 F 98.2 F Pulse Rate 70 92 H 71 Respiratory Rate 16 18 15 Blood Pressure 164/90 H Blood Pressure [Right Arm] 152/86 H 155/71 H Pulse Oximetry 100 97 99 02/25/19 18:23 02/25/19 19:07 Temperature 97.8 F Pulse Rate 70 70 Respiratory Rate 18 17 Blood Pressure 171/90 H Blood Pressure [Right Arm] 166/75 H Pulse Oximetry 98 98 Oxygen Delivery Method Nasal Cannula Narrative Exam Narrative: Constitutional: NAD Neurologic: Awake and alert, oriented x3, follows commands, Left lower extremity weakness and drift, left facial droop at the lip, No dysmetria. No tremor or fasciculations, Some stumbling of words / slurring (this is very subtle, and may be con sidered negligible) NIHSS 2 (LLE drift, left facial droop) Head: NC, AT Eyes: PERRL, EOMI, Ears: external ears normal, no otorrhea Nose: external nose normal, no rhinorrhea or epistaxis Throat: dry MM, oropharynx w/o exudate Neck: no masses, lymphadenopathy, or JVD Chest / Respiratory: equal chest rise, unlabored respiratory effort, no dyspnea or tachypnea, CTAB Heart / CV: S1S2, no murmur Abdomen / GI: round, morbid obesity, NT, ND, + BS, no organomegaly : no suprapubic tenderness, no CVA Peripheral / Vascular: warm to touch, DP and PT pulses palpable, LLE edema 1+ Upper Extremities: radial pulses present bilat, LUE edema, mildly cool to touch, sensation intact Musc: full ROM of upper and lower extremities, adequate muscle tone and bulk Skin: no ecchymosis or suspicious lesions / ulcers Objective Labs Result Diagrams: 02/25/19 14:25 02/25/19 14:25 Labs: Laboratory Results - last 24 hr 02/25/19 02/25/19 02/25/19 14:25 14:25 14:25 WBC 6.9 RBC 5.02 Hgb 16.0 Hct 48.1 H MCV 95.8 MCH 31.9 MCHC 33.3 RDW 13.6 Plt Count 177 Neut % (Auto) 61.4 Lymph % (Auto) 29.7 [place] % (Auto) 7.1 Eos % (Auto) 0.6 L Baso % (Auto) 1.2 Neut # (Auto) 4300 Lymph # (Auto) 2100 [place] # (Auto) 500 Eos # (Auto) 0 Baso # (Auto) 100 PT 20.9 H INR 1.8 H APTT 38 H Sodium 138 Potassium 5.0 Chloride 107 Carbon Dioxide 21 L BUN 20 H Creatinine 0.90 Estimated GFR > 60.0 BUN/Creatinine Ratio 22.2 H Glucose 166 H Calcium 9.4 Total Bilirubin 0.5 AST 26 ALT 22 Alkaline Phosphatase 107 Troponin I 0.014 Total Protein 7.0 Albumin 4.0 Globulin 3.0 Albumin/Globulin Ratio 1.3 Assessment & Plan Assessment & Plan narrative: TIA, acute on chronic, present on admission, active - Unable to perform MRI, patient has a pacemaker that is not MRI compatible - Echo in am - Risk Stratify: A1C, FLP (goal LDL < 70) - Labs: UA, add Mg... CBC and BMP in am - IVF x1 L then d/c - NIHSS on presentation to unit, then Q.Shift until discontinued - Neuro checks per hospital / stroke protocol - Telemetry monitoring - Supplemental O2, titrate accordingly to keep SpO2 > 95% - Consult PT, OT, SP - Consult case management, re: d/c planning; rehab placement - Stroke education Chronic anticoagulation with warfarin (goal INR 2-3), chronic, present on admission, sub-therapeutic (INR 1.8) - give warfarin 5 mg x1 tonight; resume TABLET MA[employer]ACHINE [employer]PER[employer] regimen of coumadin thereafter - inr in am - resume TABLET [employer]PER[employer] regimen LUE edema, acute, present on admission, active - LUE u/s to r/o blood clot - Neurovascular checks Q4H Essential hypertension, chronic condition, present on admission, BP elevated (has not taken evening dose of meds) - Resume TABLET [employer]PERATOR [employer] regimen of lisinopril and metoprolol - Trend BPs, BP check q.4 hours Pre-diabetes, chronic condition, present on admission, active TABLET [employer]PERATOR [employer] on metformin and glimepiride. Elevated blood glucose of 166 on admission. - A1C pending - hold metformin and glimepiride overnight, may use SSI dose prn; re-evaluate in the morning, may be able to restart TABLE[employer] regimen Headache, acute on chronic, present on admission, active -Tylenol 650 mg Q6H prn pain AFIB, chronic, present on admission, stable / controlled w/ PPM - EKG reveals a v-paced rhythm - resume TABLET [employer]PER[employer] metoprolol Full code. Patient does not have a formal health directive. Designates her daughter as surrogate decision maker. Home medications reviewed and reconciled SCDs. Anticoagulated with warfarin. Quality VTE Deep Vein Thrombosis/Pulmonary Embolism Present on Admission: No
[2019-02-25 22:10] LABS: Hemoglobin A1C% w Est Avg Glu 5.6 % (4.0-6.0)
[2019-02-25] MEDS: WARFARIN 5 MG TABLET PO (22:17)
[2019-02-25 23:02] LABS: Magnesium 1.6 mg/dL (1.6-2.3)
--- NOTE | 2019-02-26 | DI.ECHO.S_ITS ---
[facility] +---------+ : : [address] : [place] : : : : [id number] : : : : Phone: [phone]+ Echocardiogram Report + + :Name: ASHLEY HASSAN Study Date: 02/26/2019 Height: 68 in : :[facility] Exam Location: [facility] Weight: 281 lb : : Gender: Female BSA: 2.4 m2 : :: 1955 Age: 63 yrs BP: 159/70 mmHg: :Reason For Study: TIA : :Ordering Physician: Cedric : :Hospitalist Performed By: Tyesha Page : :Referring: JUDIE SIMS : + + Interpretation Summary Left ventricular systolic function is normal without focal wall motion abnormalities with the ejection fraction visually estimated to be 55-60%. Left ventricular wall thickness is borderline increased but diastolic function could not be accurately assessed due to the paced rhythm. The right ventricle is normal size and right ventricular systolic function is mildly reduced. Pulmonary artery pressures cannot be estimated because of the lack of a measurable TR jet velocity but the IVC suggests a CVP of around 3 mmHg. Both atria are mildly dilated. The interatrial septum is intact with no evidence for an atrial septal defect by Doppler or injection of contrast. There is mild to moderate mitral regurgitation but no other significant valvular heart disease. The patient has a paced rhythm with probable underlying atrial fibrillation with heart rates between 70 bpm during the exam. This could potentially be a cardioembolic source. Clinical correlation is recommended. Procedure: A two-dimensional transthoracic echocardiogram with color flow and Doppler was performed. The study quality was technically adequate. There is no prior echocardiogram noted for this patient. A saline contrast injection was performed to assess for cardiac shunting. The patient has a paced rhythm. The patient was in atrial fibrillation with heart rates between 70 bpm during the exam. Left Ventricle: The left ventricle is normal in size. Left ventricular wall thickness is borderline increased. Left ventricular systolic function is normal without focal wall motion abnormalities. The ejection fraction is estimated to be 55-60%. Diastolic function could not be accurately assessed due to paced rhythm. Right Ventricle: There is a pacemaker lead in the right ventricle. The right ventricle is normal size. Right ventricular systolic function is mildly reduced. Atria: Both atria are mildly dilated. The interatrial septum is intact with no evidence for an atrial septal defect. There is no Doppler evidence for an interatrial shunt. Injection of contrast documented no interatrial shunt. Mitral Valve: There is mild mitral annular calcification. The mitral valve leaflets appear mildly thickened, but open well. There is mild to moderate mitral regurgitation. Aortic Valve: The aortic valve is not well visualized. The aortic valve is slightly calcified. The aortic valve opens well. No aortic regurgitation is present. Tricuspid Valve: The tricuspid valve is normal in structure and function. There is trace tricuspid regurgitation. Pulmonary artery pressures cannot be estimated because of the lack of a measurable TR jet velocity but the IVC suggests a CVP of around 3 mmHg. Pulmonic Valve: The pulmonic valve is not well visualized. There is no other significant valvular heart disease. Great Vessels: The aortic root is normal size. The ascending aorta is normal in size. The aortic arch is normal in size. The pulmonary artery is not well visualized, but is probably normal size. The IVC is of normal diameter and collapses greater than 50% with a sniff. This suggests a low right atrial pressure of 3 mm Hg. Pericardium/ Pleura There is no pericardial effusion. There is no pleural effusion. MMode/2D Measurements & Calculations LVIDd: 4.8 cm Ao root diam: 3.0 cm LVIDs: 3.2 cm asc Aorta Diam: 3.2 cm FS: 32.9 % Ao Arch Diam (Prox Trans): 2.3 cm EPSS: 0.60 cm IVSd: 0.96 cm LVPWd: 1.2 cm LV harvey. diameter/BSA (cm/m^2): 2.0 LV sys. diameter/BSA (cm/m^2): 1.4 LA A2 area: 26.8 cm2 RA long axis: 5.7 cm LA A4 area: 25.2 cm2 RA area: 23.6 cm2 LA length (vol): 6.1 cm RA vol: 83.7 ml LA vol: 94.4 ml RA : 35.4 ml/m2 LA vol index: 40.0 ml/m2 IVC diam: 1.4 cm RVD1 (basal): 4.0 cm Doppler Measurements & Calculations Ao V2 max: 113.8 cm/sec LVOT Max Frank: 75.9 cm/sec Ao V2 mean: 80.7 cm/sec LV V1 max P.3 mmHg Ao max P.2 mmHg LV V1 VTI: 13.9 cm Ao mean P.9 mmHg sev ratio: 0.62 Ao V2 VTI: 22.4 cm MV E max frank: 125.2 cm/sec TR max frank: 224.4 cm/sec MV P1/2t: 61.7 msec TR max P.1 mmHg PA V2 max: 62.0 cm/sec PA V2 mean: 44.2 cm/sec PA mean P.84 mmHg PA Accel Time: 0.11 sec MV V2 mean: 68.0 cm/sec MV P1/2t max frank: 124.6 cm/sec MV mean P.5 mmHg MVA(P1/2t): 3.6 cm2 MV V2 VTI: 28.3 cm Reading Physician:PM
[2019-02-26 00:10] VITALS: BP 128/59; PULSE 70; RESP 16; TEMP 36.9; O2SAT 96
[2019-02-26] MEDS: SODIUM CHLORIDE 0.9% 1,000 ML 75 ML IV (00:28)
[2019-02-26] MEDS: METOPROLOL IR 25 MG TABLET PO ×2 (00:28→11:17)
[2019-02-26 01:10] LABS: Bacteria Urine None Seen; RBC Urine None Seen (0-5/HPF)
[2019-02-26 01:15] LABS: Appearance Urine UA CLEAR; Bilirubin Urine UA NEGATIVE (NEGATIVE); Color Urine UA YELLOW; Glucose Urine UA NEGATIVE (Negative); Ketones Urine UA NEGATIVE (NEGATIVE); Leukocyte Esterase Urine UA NEGATIVE (NEGATIVE); Nitrite Urine UA NEGATIVE (Negative); Occult Blood Urine UA NEGATIVE (Negative); Protein Urine UA NEGATIVE (Negative); Specific Gravity Urine UA 1.025 (1.000-1.035); Urobilinogen Urine UA 0.2 E.U./dL (0.2)
[2019-02-26 01:24] LABS: Culture Indicated Urine Cult Not Indicated; Squamous Epithelial Cell Urine 0-1 /HPF (0-5/HPF); WBC Urine 0-1/HPF (0-5/HPF)
[2019-02-26 03:42] VITALS: BP 124/59; PULSE 70; RESP 16; TEMP 36.4; O2SAT 95
[2019-02-26 07:24] LABS: Add Manual Diff / Slide Review NO; Basophils Absolute Auto 0 /uL (0-100); Basophils Percent Auto 0.8 % (0-2); Eosinophils Absolute Auto 100 /uL (0-450); Hematocrit 44.6 % (36-46); Lymphocytes Absolute Auto 2100 /uL (1100-4500); Lymphocytes Percent Auto 34.2 % (25-40); Mean Corpuscular HGB Conc 33.6 % (30-36); Mean Corpuscular Hemoglobin 32.1 PG (26-34); Mean Corpuscular Volume 95.3 fL (80-100); Monocytes Absolute Auto 500 /uL (0-900); Monocytes Percent Auto 8.9 % (3-14); Neutrophils Absolute Auto 3300 /uL (1500-7000); Neutrophils Percent Auto 55.1 % (50-75); Platelet Count 146 X10^3/uL (150-400); Red Blood Cell Count 4.68 X10^6/uL (4.0-5.2); Red Cell Distribution Width 13.3 % (11.6-14.8); White Blood Cell Count 6.1 X10^3/uL (4.5-11.0)
[2019-02-26 07:30] LABS: Prothrombin Time 23.5 SECONDS (10.1-12.7)
[2019-02-26 07:35] LABS: Blood Urea Nitrogen 18 mg/dL (7-17); Calcium 8.8 mg/dL (8.4-10.2); Carbon Dioxide 24 mmol/L (22-32); Chloride 107 mmol/L (98-107); Glucose 105 mg/dL (80-110); HEMOLYSIS < 15 (0-50); Potassium 4.8 mmol/L (3.4-5.1); Sodium 137 mmol/L (137-145)
[2019-02-26 07:41] LABS: Cholesterol 194 mg/dL (140-199); HDL Cholesterol 44 mg/dL (40-60); LDL Cholesterol Calculated 125 mg/dL (<100); Triglycerides 125 mg/dL (35-150); VLDL Cholesterol Calculated 25 mg/dL (2-30)
[2019-02-26 07:45] VITALS: BP 159/70; PULSE 70; RESP 16; TEMP 36.8; O2SAT 97
--- NOTE | 2019-02-26 10:26 | PT.IIE ---
Current Diagnoses Transient cerebral ischemic attack, unspecified (02/25/19) Surgical History (Last Updated 02/25/19 @ 21:14 by ALANIS Hyman) History of permanent cardiac pacemaker placement (Chronic) Medical History (Last Updated 02/25/19 @ 22:33 by ALANIS Hyman) Allergic rhinitis (Chronic) Atrial fibrillation (Chronic) CVA (cerebral vascular accident) (Chronic) Fibromyalgia (Chronic) IJEOMA (obstructive sleep apnea) (Chronic) Physical Therapy Inpatient Evaluation/Re-Eval M1 PT/OT-IP Prior Functional Status Start: 02/26/19 11:34 Freq: NEEDED Status: Active Protocol: Document 02/26/19 10:26 AB (Rec: 02/26/19 11:45 AB [id number]) Medical Review Prior Functional Status Medical History Reviewed Yes Communication able to make needs known Mobility and Gait pt stated that she is independent with all mobilities and ambulation without AD Social History Household Members children Living Arrangements House Number of Floors (Floors) Two Floors Number of Stairs To Enter/Railing? 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 PT-IP Current Condition Start: 02/26/19 11:34 Freq: NEEDED Status: Active Protocol: Document 02/26/19 10:26 AB (Rec: 02/26/19 11:45 AB [id number]) Physical Therapy Current Condition Current Condition Evaluation Date 02/26/19 Treatment Diagnosis TIA; difficulty in walking Onset Date 02/25/19 M3 PT-IP Subjective Start: 02/26/19 11:34 Freq: NEEDED Status: Active Protocol: Document 02/26/19 10:26 AB (Rec: 02/26/19 11:45 AB [id number]) Subjective Physical Therapy Visit Type Type Initial Evaluation Visit Start Time 10:26 Visit Stop Time 10:45 Total Visit Minutes 19 Number of ASSEMBLER WET WASH Visits 0 Physical Therapy Visit Comments Patient Comments pt agreeable to do PT; requested to use the toilet M4 PT-IP Mobility and Gait Start: 02/26/19 11:34 Freq: NEEDED Status: Active Protocol: Document 02/26/19 10:26 AB (Rec: 02/26/19 11:45 AB [id number]) PT-Bed Mobility Assessment Supine to Sit Supine to Sit Standby Assistance Head of Bed Elevated Bedrails Sit to Supine Sit to Supine Standby Assistance Head of Bed Elevated Bedrails PT-Transfer Assessment Equipment Transfer Assistive Device None Gait Belt Orthotic/Prosthetic Devices or Brace: No Transfers Transfer Destination Bed Chair Toilet Transfer Technique pt ambulated without AD Transfer Ability Level of Assist Standby Assistance Gait Assessment Gait Gait Assistance Required: Standby Assistance Distance (Feet) 200 Able to Maintain Weight Bearing Status Yes During Gait Assistive Devices Assistive Device None Gait Belt Factors Limiting Gait Function Factors Limiting Gait Function Decreased Strength Poor Balance Stair Climbing Assessment Evaluation Level of Assist On Stairs Moderate Assistance 1 Person Assistance Devices Stair Climbing Assistive Devices Right Railing Technique/Endurance Stair Climbing Direction Ascend and Descend Stair Climbing Technique Step to Step Number of Steps Climbed 1 Query Text: Stair Climbing Set # Repetitions (reps) 2 Comments Stair Climbing Comments pt refused to do stair training but agreed to do up/ down 1 step stool with R rail. pt completed with mod A and cues. PT-Balance Assessment Sitting Balance and Reactions Static Sitting Balance Ability Good Dynamic Sitting Balance Ability Good Standing Balance and Reactions Static Standing Balance Ability Fair Dynamic Standing Balance Ability Fair Device Used without AD M5 PT-IP Objective Assessments Start: 02/26/19 11:34 Freq: NEEDED Status: Active Protocol: Document 02/26/19 10:26 AB (Rec: 02/26/19 11:45 AB [id number]) Orientation Orientation/Cognition Level of Alertness Alert Orientation Name Age Place Situation Safety Awareness Understands Safety Issues Gross Range of Motion Lower Extremity ROM Assessment Within Functional Limits Strength Lower Extremity Strength Assessment Left Impaired Hip 4-/5 Knee 4-/5 Coordination Assessment Gross Coordination Gross Coordination WNL Sensation Assessment Sensation Gross Sensation WNL Muscle Tone Muscle Tone WNL Yes M6 PT-IP Treatment Start: 02/26/19 11:34 Freq: NEEDED Status: Active Protocol: Document 02/26/19 10:26 AB (Rec: 02/26/19 11:45 AB [id number]) Physical Therapy Treatment Education Education Provided Safety M7 PT-IP Assessment and Plan Start: 02/26/19 11:34 Freq: NEEDED Status: Active Protocol: Document 02/26/19 10:26 AB (Rec: 02/26/19 11:45 AB [id number]) PT Summary Assessment and Plan Potential Rehabilitation Potential Good Status of Condition at Evaluation Stable Summary Impairments Strength Balance Bed Mobility Transfers Gait Activity Tolerance Assessment Summary pt requiring SBA with ambulation without AD; needs assistance with climbing stairs. pt plans to go home. Goals Bed Mobility Goal Independent Transfer Goal Independent Gait Goal Independent Gait Distance 250 Other Goals up/down 8 steps R rail ascending SBA Days to Meet Goals 3 Frequency of Treatment Frequency Of Treatment Once a Day Treatment Plan Physical Therapy Treatment Plan Bed Mobility Training Transfer Training Gait Training Therapeutic Exercise Balance Retraining Discharge Planning Neuromuscular Re-ed Coordination Retraining Manual Therapy Other Recommendations and Next Treatment bed mobility, stair climbing Focus Recommendations To Nursing Amount of Assist Needed Standby Assistance Discharge Recommendations PT Discharge Recommendations Home
[2019-02-26] MEDS: LISINOPRIL 10 MG TABLET PO (11:11)
--- NOTE | 2019-02-26 11:18 | PC.NURSE ---
Addendum entered by Tena Beatty R.N. 02/26/19 14:37: CTA ordered for Pt and Pt has documented allergy to iodine. Per Pt in the past has been premedicated with pred and benedryl. Original Note: Am shift Pt requests restarting home meds, notified Dr Goode. Lisinopril and Metoprolol given as ordered. C/o WEBSTER mild. Unable to take APAP per Pt, updated on medication A/e. Working with speech, who will clear Pt from speech follow up. Speech is clear and appropriate. Mild L sided facial droop. Present prior to admit, per Pt.
--- NOTE | 2019-02-26 12:24 | ST.IPIE ---
Care Team Visit Care Team Role Provider Type Jaison Valenzuela DO Emergency Provider Physician Specialty: Emergency Medicine Address: [address] [place] [address], [id number] Email: Sharona Goode DO Admit Provider Physician Attending Provider Specialty: Internal Medicine Address: [address] [place] [address], [id number] Email: Current Diagnoses Transient cerebral ischemic attack, unspecified (02/25/19) Past Medical History (Last Updated 02/25/19 @ 22:33 by ALANIS Hyman) Allergic rhinitis (Chronic Medical) Atrial fibrillation (Chronic Medical) CVA (cerebral vascular accident) (Chronic Medical) Fibromyalgia (Chronic Medical) IJEOMA (obstructive sleep apnea) (Chronic Medical) does not wear CPAP ST IP Initial Evaulation Report PVC MONITOR Clinical Swallow Evaluation Start: 02/26/19 11:23 Freq: Status: Active Protocol: Document 02/26/19 11:24 GINNY (Rec: 02/26/19 12:06 GINNY [email or web address]) Clinical Swallow Evaluation Session Time Visit Start Time 08:50 Visit Stop Time 09:05 Total Visit Minutes 30 Referral Referring Physician ALANIS Hyman Reason for Referral TIA/Stroke Protocol Setting Assessment Location Acute Care Visit Type Note Type Initial Evaluation Patient Information Identification Type Name ID Card History 63-yr-old female presented to ED for evaluation per family's request out of concern for a left-sided facial droop. Patient was noted to have an episode left-sided facial droop and slurred speech at 9pm on 02/24/2019 and once again the next morning. Patient has a prior history of CVA (s/p thrombectomy, 2011) with reported residual left facial droop, left lower extremity weakness, and slurred speech. Head CT revealed no definite acute abnormality; remote right MCA territory infarction. Pt is unable to participate in MRI d /t presence of pacemaker. Subjective Observations The pt was awake in bed and just finished eating a bowl of cereal and drinking coffee with no reported difficulty. She was agreeable to swallow and speech/language evaluations. She stated she did not feel she has had any TIA/stroke symptoms but that her coworkers did and that was why she was hear. Evaluation Liquids Trialed Ice Chips Thin Solids Trialed Puree Mechanical Soft Regular Administration Type Cup Single Sip Cup Consecutive Sips Straw Self-Feeding Oral Impairment WNL Oral Strategies Upright at 90 degrees Oral Phase Comments Oral Peripheral Exam: Mild left side facial weakness apparent upon smiling. Minimal to no elevation of soft palate upon steady and staccato phonation. Hyolaryngeal movement was difficult to assess via palpation d/t adipose tissue. Otherwise, features were symmetrical and WNL of strength, coordination and ROM . Pt has natural teeth in adequate condition, one lower left molar missing. Oral prep and swallow phases WNL. Pharyngeal Impairment WNL Pharyngeal Strategies Sitting Upright (90 deg) Pharyngeal Phase Comments No overt s/sx of aspiration observed with all trials. Clear voice maintained throughout, and pt had no complaints. Findings Impressions Pt presents with normal swallow function. Diet Recommendations Liquids Order Thin Diet Order Regular Medication Recommendations As Tolerated Aspiration Precautions Recommended Precautions Upright at 90 Degrees Treatment Plan Placement Recommendations after Home Discharge Appropriate for Therapy No PVC MONITOR Language Evaluation Start: 02/26/19 11:23 Freq: Status: Active Protocol: Document 02/26/19 12:21 GINNY (Rec: 02/26/19 12:24 GINNY [email or web address]) Language Evaluation Session Time Visit Start Time 09:05 Visit Stop Time 09:20 Total Visit Minutes 15 Hearing Hearing Level Normal Vision Vision Status Not Impaired Previous Therapy Previous Speech-Language Therapy Yes: Following TIA in 2013 - Informal Assessment Receptive Language Normal Yes Expressive Language Normal Yes Articulation Normal Yes Assessment Findings Pt exhibits expressive and receptive language skills and speech intelligibility WNL. No s/sx of cognitive impairment observed. - Receptive Language Yes/No Questions Skill Level WNL Following Directions - Verbal Skill Level WNL Auditory Comprehension Skill Level WNL Reading Comprehension Skill Level WNL - Expressive Language Automatic Speech Skill Level WNL Object Naming Skill Level WNL Oral Expression Skill Level WNL - Recommendations Recommendations No therapy warranted at this time. Recommend pt discharge home.
[2019-02-26] MEDS: CELECOXIB 200 MG CAPSULE PO (14:02)
[2019-02-26] MEDS: GLIMEPIRIDE 2 MG TABLET PO (14:02)
[2019-02-26 14:17] VITALS: BP 158/91; PULSE 70; RESP 17; TEMP 36.4; O2SAT 98
[2019-02-26 16:00] VITALS: BP 137/73; PULSE 70; RESP 20; TEMP 36.4; O2SAT 97
[2019-02-26] MEDS: WARFARIN 5 MG TABLET PO (17:13)
--- NOTE | 2019-02-26 17:27 | PM.DS.1 ---
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 Patient presented for evaluation per family's request out of concern for a left-sided facial droop. Patient was noted to have an episode left-sided facial droop and slurred speech at 9pm on 02/24/2019 and once again this morning. Patient has a prior history of CVA (s/p thrombectomy, 2011) with reported residual left facial droop, left lower extremity weakness, and slurred speech. Patient's residual deficits are very subtle. At time of the aforementioned event patient thought to have more prominent facial droop and slurring of speech. Patient herself has not noticed difference from baseline. Patient herself does not endorse change in vision, dizziness, lightheadedness, syncopal events, chest pain, palpitations, abdominal pain, or gastrointestinal distress. Recently has been experiencing a headache in the occipital region. Reports fatigue for the past 3 days and restless legs/difficulty sleeping (this is unusual for the patient). In addition has been having left upper extremity edema. Patient has a ppm/AICD for an underlying AFIB / cardiomyopathy. She has had trouble in the past with pacemaker leads and defibrillator discharge, this has not happened recently. Patient is chronically anti-coagulated w/ Warfarin. INR level on presentation is 1.8 (subtherapeutic). Patient notes additional symptoms of fatigue for the past 3 days. No fever or chills. No abdominal pain or GI distress. Patient does not check her blood pressure home. Reports adherence to home medications. ED presentation, workup WBC 6.9 HGB 16.0 HCT 48.1 PLT 177 PT 20.9 INR 1.8 aPTT 38 Na 138 K 5.0 Cl 107 Ca 9.4 Glu 166 CO2 21 BUN 20 Cr 0.9 BUN : Cr 22.2 liver enzyme wnl Trop 0.014 CT Head, no definite acute abnormality seen, remote right MCA territory infarction. Discharge Providers Date of admission: 02/25/19 16:17 Discharge Date: 02/26/19 Consults: 02/25/19 18:49 Consult to Discharge Planning Routine Comment: Consult to Occupational Therapy Evaluate & Treat Comment: Physician Instructions: Evaluate and treat Consult to Physical Therapy Evaluate & Treat Comment: Physician Instructions: Evaluate and Treat Consult to Speech Therapy Evaluate & Treat Comment: Physician Instructions: Evaluate and treat 02/25/19 22:22 Consult to Speech Therapy Routine Comment: Physician Instructions: Evaluate and treat Discharge provider: Sharona Goode DO Summary Discharge Diagnosis: 1. Probable acute TIA, present on admission. Resolved. 2. Chronic anticoagulation with warfarin, present on admission. Stable. 3. Left upper extremity edema, acute on chronic, present on admission. Stable. 4. Hypertension, chronic, present on admission. Stable. 5. Pre-diabetes, chronic, present on admission. Stable. 6. Hyperlipidemia, chronic, present on admission. Stable. 7. Headache, acute on chronic, present on admission. Acute portion resolved. 8. Chronic atrial fibrillation, present on admission. Stable. 9. Morbid obesity, present on admission. Stable. Hospital Course: 1. Probable acute TIA, present on admission. Resolved. -Patient presented with worsening left sided facial droop and slurred speech. -CT demonstrated old right sided MCA infarct. Unable to perform MRI as patient has a pacemaker that is not MRI compatible. -Echocardiogram demonstrated Left ventricular systolic function is normal without focal wall motion abnormalities with the ejection fraction visually estimated to be 55-60%. Left ventricular wall thickness is borderline increased but diastolic function could not be accurately assessed due to the paced rhythm. The right ventricle is normal size and right ventricular systolic function is mildly reduced. Pulmonary artery pressures cannot be estimated because of the lack of a measurable TR jet velocity but the IVC suggests a CVP of around 3 mmHg. Both atria are mildly dilated. The interatrial septum is intact with no evidence for an atrial septal defect by Doppler or injection of contrast. There is mild to moderate mitral regurgitation but no other significant valvular heart disease.The patient has a paced rhythm with probable underlying atrial fibrillation with heart rates between 70 bpm during the exam. This could potentially be a cardioembolic source. -Risk stratified with hemoglobin A1C which was normal at 5.6% and fasting lipid panel which was poorly controlled and demonstrated: Total cholesterol 194, triglycerides 125, LDL 125 (goal LDL < 70) and HDL 44. -Received IVF with normal saline x 1 L to improve cerebral perfusion. -Continued frequent NIH and neuro checks per stoke protocol. -Continued to monitor closely on telemetry. No ectopy. V-paced. -Ordered supplemental O2, titrate accordingly to keep SpO2 > 88%. -Continued physical, occupational, and speech therapy evaluations and treatment. Recommended home no needs. -Provided detailed stroke education including lifestyle modification including diet and exercise. 2. Chronic anticoagulation with warfarin, present on admission. Stable. -Received warfarin 5 mg x 1 on admission and thereafter resumed home regimen. -Initial INR subtherpeutic at 1.8. INR on discharge therapeutic at 2.0. Goal INR 2.0-3.0. 3. Left upper extremity edema, acute on chronic, present on admission. Stable. -LUE Doppler U/S negative for DVT. -Continued close neurovascular checks. 4. Hypertension, chronic, present on admission. Stable. -Initial BP elevated at 164/90 due to not taking evening medications. -Continued home lisinopril 10 mg daily and metoprolol tartrate 25 mg twice daily. -Continued to trend BP. 5. Pre-diabetes, chronic, present on admission. Stable. -Elevated blood glucose of 166 on admission. Hemoglobin A1C 5.6%. -Held metformin and glimepiride and resumed at time of discharge. -Continued low dose correctional insulin and ACHS blood glucose checks. 6. Hyperlipidemia, chronic, present on admission. Stable. -Statin intolertant on the past with N/V? -Fasting lipid panel as above. Goal LDL < 70, currently 125. -Discussed statins and recommended re-trying in the outpatient setting. 7. Headache, acute on chronic, present on admission. Acute portion resolved. -Ordered Tylenol 650 mg every 6 hours as needed for pain. 8. Chronic atrial fibrillation, present on admission. Stable. -Status post pacemaker. -EKG demonstrated v-paced rhythm with olegley underlying atrial fibrillation. -Continued home metoprolol tartrate 25 mg twice daily. 9. Morbid obesity, present on admission. Stable. -BMI 42.7. -Counseled patient as above on lifestyle modification. Status at Discharge Overall status at discharge: patient is back to baseline Exam Vital Signs (past 8 hours): - 02/26/19 14:17 02/26/19 16:00 Temperature 97.5 F L 97.5 F L Pulse Rate 70 70 Respiratory Rate 17 20 Blood Pressure 158/91 H 137/73 Pulse Oximetry 98 97 Oxygen Delivery Method Room Air Oxygen Flow Rate 0 Narrative Exam Narrative: General: Older female sitting in bed and in no acute distress, appears older than stated age, well-developed, well-nourished, appropriately interactive. HEENT: Normocephalic, atraumatic. External ears without defect. Pupils equal, round, and reactive to light. Anicteric sclerae, moist conjunctivae, and no lid lag. Neck: Supple with full range of motion. No jugular venous distension. No bruits. No lymphadenopathy or thyromegaly. Cardiovascular: Regular rate and rhythm with no murmurs, rubs, or gallops appreciated Pulmonary: Clear to auscultation bilaterally with no crackles, wheezes, or rhonchi. Normal respiratory effort with no use of accessory muscles. Abdomen: Soft, obese, bowel soounds present, nontender, nondistended. No hepatosplenomegaly or masses appreciated. Extremities: No clubbing, cyanosis, or edema. Skin: Normal temperature, turgor, and texture; no rash, ulcers, or subcutaneous nodules appreciated. Neurological: Cranial nerves grossly intact. Mild subtle left sided facial droop. Psychiatric: Depressed mood and flat affect. Alert and oriented to person, place, and time. Objective Labs Result Diagrams: 02/26/19 07:08 02/26/19 07:08 Labs: Laboratory Results - last 24 hr 02/25/19 02/25/19 02/26/19 14:25 14:25 00:35 WBC RBC Hgb Hct MCV MCH MCHC RDW Plt Count Neut % (Auto) Lymph % (Auto) [place] % (Auto) Eos % (Auto) Baso % (Auto) Neut # (Auto) Lymph # (Auto) [place] # (Auto) Eos # (Auto) Baso # (Auto) PT INR Sodium Potassium Chloride Carbon Dioxide BUN Creatinine Estimated GFR BUN/Creatinine Ratio Glucose Hemoglobin A1c 5.6 Calcium Magnesium 1.6 Triglycerides Cholesterol LDL Cholesterol, Calc VLDL Cholesterol HDL Cholesterol Urine Color Yellow Urine Appearance Clear Urine pH 6.0 Ur Specific [place] 1.025 Urine Protein Negative Urine Glucose (UA) Negative Urine Ketones Negative Urine Occult Blood Negative Urine Nitrate Negative Urine Bilirubin Negative Urine Urobilinogen 0.2 Ur Leukocyte Esterase Negative Urine RBC None seen Urine WBC 0-1/hpf Ur Squamous Epith Cells 0-1 /hpf Urine Bacteria None seen Ur Culture Indicated? Cult not indicated 02/26/19 02/26/19 02/26/19 07:08 07:08 07:08 WBC 6.1 RBC 4.68 Hgb 15.0 Hct 44.6 MCV 95.3 MCH 32.1 MCHC 33.6 RDW 13.3 Plt Count 146 L Neut % (Auto) 55.1 Lymph % (Auto) 34.2 [place] % (Auto) 8.9 Eos % (Auto) 1.0 L Baso % (Auto) 0.8 Neut # (Auto) 3300 Lymph # (Auto) 2100 [place] # (Auto) 500 Eos # (Auto) 100 Baso # (Auto) 0 PT 23.5 H INR 2.0 H Sodium Potassium Chloride Carbon Dioxide BUN Creatinine Estimated GFR BUN/Creatinine Ratio Glucose Hemoglobin A1c Calcium Magnesium Triglycerides 125 Cholesterol 194 LDL Cholesterol, Calc 125 H VLDL Cholesterol 25 HDL Cholesterol 44 Urine Color Urine Appearance Urine pH Ur Specific [place] Urine Protein Urine Glucose (UA) Urine Ketones Urine Occult Blood Urine Nitrate Urine Bilirubin Urine Urobilinogen Ur Leukocyte Esterase Urine RBC Urine WBC Ur Squamous Epith Cells Urine Bacteria Ur Culture Indicated? 02/26/19 07:08 WBC RBC Hgb Hct MCV MCH MCHC RDW Plt Count Neut % (Auto) Lymph % (Auto) [place] % (Auto) Eos % (Auto) Baso % (Auto) Neut # (Auto) Lymph # (Auto) [place] # (Auto) Eos # (Auto) Baso # (Auto) PT INR Sodium 137 Potassium 4.8 Chloride 107 Carbon Dioxide 24 BUN 18 H Creatinine 1.00 Estimated GFR 56.0 L BUN/Creatinine Ratio 18.0 Glucose 105 Hemoglobin A1c Calcium 8.8 Magnesium Triglycerides Cholesterol LDL Cholesterol, Calc VLDL Cholesterol HDL Cholesterol Urine Color Urine Appearance Urine pH Ur Specific [place] Urine Protein Urine Glucose (UA) Urine Ketones Urine Occult Blood Urine Nitrate Urine Bilirubin Urine Urobilinogen Ur Leukocyte Esterase Urine RBC Urine WBC Ur Squamous Epith Cells Urine Bacteria Ur Culture Indicated? Discharge Plan Discharge Plan Patient Disposition: Home Discharge comment: You're being discharged home. You likely had a TIA versus fatigue propagating old deficits from your prior stroke as her symptoms have resolved. You do not have a blood clot in your left arm. Your INR is now therapeutic at 2.0. Please [facility] by Sunday02/28/2019. Please continue medications as prescribed. Please follow-up with your PCP, Dr. Brenner, regarding your hospitalization and reconsider a statin. Your diabetes is well controlled on metformin and glimepiride with a hemoglobin A1c of 5.6%. However, in regard to weight loss he may want to consider going up on metformin. You would benefit from implementing lifestyle modification including diet and exercise as discussed. The [place] [employer] recommends 150 minutes of moderate intensity cardiovascular exercise per week. If you're sedentary start with small obtainable goals and work your way up. You would also benefit from a light weight lifting as the more muscle mass you have the more fat you burn and it protects your bone health. You should not be taking NSAIDs as they have been linked to heart disease and you are on warfarin. To whom it concerns, Ms. Godwin was hospitalized from 02/25/2019 to 02/26/2019. She may return back to work on 02/28/2019. Discharge Med Rec/Prescriptions Prescriptions: Continued metformin 500 mg Tablet 500 mg PO QPM RF: 0 glimepiride 2 mg Tablet 2 mg PO QAM RF: 0 lisinopril 10 mg Tablet 10 mg PO DAILY RF: 0 warfarin 5 mg Tablet 5 mg PO QMWF RF: 0 warfarin 5 mg Tablet 2.5 mg PO SUTUTHSA RF: 0 metoprolol tartrate 25 mg Tablet 25 mg PO BID RF: 0 Discontinued celecoxib [Celebrex] 200 mg Capsule 200 mg PO DAILY RF: 0 Follow up/Referrals: Anselmo Brenner MD [Physician] - 1 Week Provider Discharge Instructions Diet: Carb-consistent/Diabetic, Low-fat, Low-sodium and Low-cholesterol Activity: Activity as tolerated Visit Report/Discharge Packet Instructions: The Mediterranean Diet and Good Health, DI for Transient Ischemic Attack Discharge Data Attending Provider: Sharona Goode Admit Date/Time: 02/25/19 16:17 Discharges patient from system. Discharge Date/Time: 02/26/19 18:27 Quality VTE Deep Vein Thrombosis/Pulmonary Embolism Present on Admission: No
--- NOTE | 2019-02-26 18:23 | OT.IP.EVAL ---
Current Diagnoses Transient cerebral ischemic attack, unspecified (02/25/19) Past Medical History (Last Updated 02/25/19 @ 22:33 by ALANIS Hyman) Allergic rhinitis (Chronic) Atrial fibrillation (Chronic) CVA (cerebral vascular accident) (Chronic) Fibromyalgia (Chronic) IJEOMA (obstructive sleep apnea) (Chronic) Surgical History (Last Updated 02/25/19 @ 21:14 by ALANIS Hyman) History of permanent cardiac pacemaker placement (Chronic) Occupational Therapy Inpatient Evaluation/Re-Eval M1 PT/OT-IP Prior Functional Status Start: 02/26/19 11:34 Freq: NEEDED Status: Active Protocol: Document 02/26/19 10:26 AB (Rec: 02/26/19 11:45 AB [id number]) Medical Review Prior Functional Status Medical History Reviewed Yes Communication able to make needs known Mobility and Gait pt stated that she is independent with all mobilities and ambulation without AD Social History Household Members children Living Arrangements House Number of Floors (Floors) Two Floors Number of Stairs To Enter/Railing? 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 Social History Household Members children Living Arrangements House Number of Floors (Floors) Two Floors Number of Stairs To Enter/Railing? 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 OT-IP Current Condition Start: 02/26/19 18:05 Freq: Status: Active Protocol: Document 02/26/19 14:10 [facility] (Rec: 02/26/19 18:23 [facility] [id number]) Occupational Therapy Current Condition Current Condition Evaluation Date 02/26/19 Treatment Diagnosis TIA Diagnosis Onset Date 02/25/19 M3 OT- IP Subjective and Pain Start: 02/26/19 18:05 Freq: Status: Active Protocol: Document 02/26/19 14:10 [facility] (Rec: 02/26/19 18:23 [facility] [id number]) OT- Subjective Occupational Therapy Visit Type Type Initial Evaluation Visit Start Time 14:10 Visit Stop Time 14:55 Total Visit Minutes 45 Occupational Therapy Visit Comments Patient Comments Pt open to doing cognitive evals as requested by physician. OT Pain Assessment Pain When Pain Assessed At Rest Pain Present Pain Present Denied Pain M4 OT- IP ADL's Start: 02/26/19 18:05 Freq: Status: Active Protocol: Document 02/26/19 14:10 [facility] (Rec: 02/26/19 18:23 [facility] [id number]) OT ADL-Grooming General Evaluation Grooming Ability Independent OT ADL-Oral Care General Eval Oral Care Ability Independent OT ADL-Toileting General Evaluation Toileting Ability Independent OT ADL-Bathing Comments OT Bathing Comments Pt not wanting to shower at this time. M5 OT- IP IADL's Start: 02/26/19 18:05 Freq: Status: Active Protocol: Document 02/26/19 14:10 [facility] (Rec: 02/26/19 18:23 [facility] [id number]) OT-Instrumental Activities of Daily Living Home Safety Awareness Ability to Problem Solve Emergency Able to Problem Solve Situations Home Safety Comments Pt accurate for all home safety questions. M6 OT- IP Functional Cognition Start: 02/26/19 18:05 Freq: Status: Active Protocol: Document 02/26/19 14:10 [facility] (Rec: 02/26/19 18:23 [facility] [id number]) Cognitive Factors Limiting Selfcare Function Cognitive Ability Level of Alertness Alert Patient Orientation Name Age Birthday Month Date Year Day of Week Place Situation Attention Span Ability Capable of Focused Attention Capable of Sustained Attention Ability to Follow Commands Able to Follow One Step Commands Memory Description Short Term Impaired Working Impaired Problem Solving Ability Needs Assist to Identify Solutions Executive Function Ability Unable to Switch Focus Unable to Remember Details Cognitive Tests SLUMS Pt scored 24/30 which normal is 27/30, therefore score ijplied miold cognitive deficit. Pt having difficulty with math calculations and to remember details in a story read. ACL Pt scored 5.2 and out of 6.0 and score implies may live alone with weekly checks to monitor safety, assist with fanances, and social conflicts , and reminders to refill prescriptions. Pt can be aware of direct effects of actions happening , but impulsive with no planning. A score of 5.6 or above is recommended fro driving. Pt scored 120 sec on [place] B ci normal score is 85 seconds, in addition pt needing one cue to remind her of the instructions. At this time not recommended to drive based on cognitive assessments. Cognitive Comments Cognitive Assessment Comments Pt noted some short term memory deficits and ability fro math calculations at this time. Pt plans driving to work on Sunday. Reccommended not to drive at this time. OT- Vision and Hearing OT- Hearing Assessment OT- Hearing Assessment WFL OT- Vision Assessment Visual Acuity Glasses For Reading Visual Attentiveness WFL Visual Convergence WFL Visual [place] WFL M7 OT- IP Mobility and Balance Start: 02/26/19 18:05 Freq: Status: Active Protocol: Document 02/26/19 14:10 [facility] (Rec: 02/26/19 18:23 [facility] [email or web address]) OT- Bed Mobility Assessment Rolling Level of Assistance Independent Supine to Sit Supine to Sit Assist Independent Sit to Supine Sit to Supine Assist Independent OT-Transfer Assessment Sit to and From Stand Sit to and from Stand Independent Transfers Transfer Ability Standby Assistance Comments Mobility Comments Pt able to walk in her room with distant SBA. M8 OT- IP Objective Assessments Start: 02/26/19 18:05 Freq: Status: Active Protocol: Document 02/26/19 14:10 [facility] (Rec: 02/26/19 18:23 [facility] [email or web address]) OT Gross Range of Motion Upper Extremity Range of Motion Assessment Within Functional Limits M9 OT- IP Assessment and Plan Start: 02/26/19 18:05 Freq: Status: Active Protocol: Document 02/26/19 14:10 [facility] (Rec: 02/26/19 18:23 [facility] [email or web address]) OT Summary Assessment and Plan Potential Rehabilitation Potential Good Analytic Complexity at Evaluation Low Summary OT Impairments Functional Cognition Functional Mobility Progress Towards Goals Progressing Toward Goals Assessment Summary Pt low complexity and here due to TIA and now having some cognitive deficits and weakness per pt. Recommend pt to have assist at home initially for driving, IADl , medications, and finances. To further assess independence with showering tomorrow. Goals Dressing Goal Independent Toileting Goal Independent Bathing Goal Independent Shower Transfer Goal Independent Patient/Caregiver Education Goal Demonstrate Energy Conservation and Pacing Days to Meet Goals 3 Frequency of Treatment Frequency Of Treatment Once a Day Treatment Plan OT Treatment Plan ADL Training Functional Cognition Training Functional Mobility Patient/Family Education Discharge Planning Other Treatment Recommendations and Next Shower, reassess [place] Making Treatment Focus Part B Discharge Recommendations OT Discharge Recommendations Home with Assistance Home Equipment Needs To be determined after shower.
--- NOTE | 2019-03-25 15:54 | PC.NURSE ---
Stop time for Sodium Chloride 0.9% is 02/26/19 11:30
== END 2019-02-26 18:27 | disposition home or self-care (01) ==
LOC: ED 16:15 → AC 16:17
PROVIDERS: Nurse Practitioner Gerontology; Admitting Provider Internal Medicine; Emergency Provider Emergency Medicine; Visit Provider Internal Medicine
DX: G45.9 Transient cerebral ischemic attack, unspecified (principal); R41.82 Altered mental status, unspecified; R51 Headache; I48.2 Chronic atrial fibrillation; Z79.84 Long term (current) use of oral hypoglycemic drugs; R73.03 Prediabetes; Z79.01 Long term (current) use of anticoagulants; I10 Essential (primary) hypertension; Z86.73 Personal history of transient ischemic attack (TIA), and cerebral infarction without residual deficits; G47.33 Obstructive sleep apnea (adult) (pediatric); E66.01 Morbid (severe) obesity due to excess calories; Z95.0 Presence of cardiac pacemaker; Z87.891 Personal history of nicotine dependence
CPT/HCPCS: 36415; 36591; 70450; 80048; 80053; 80061; 81001; 81003; 82962; 83036; 83735; 84484; 85025; 85610; 85730; 92523; 93005; 93306; 93971; 96360; 96361; 97127; 97161; 97165; 99283; 99285; G0378

== ENCOUNTER → 2019-12-05 12:29 | Outpatient (CLI) | payer OTHER, SELFPAY ==
[2019-12-05 13:50] LABS: Hemoglobin A1C% w Est Avg Glu 5.8 % (4.0-6.0)
[2019-12-05 13:54] LABS: Magnesium 1.5 mg/dL (1.6-2.3)
[2019-12-05 13:56] LABS: Alanine Aminotransferase 27 IU/L (<35); Albumin 4.4 g/dL (3.5-5.0); Albumin Globulin Ratio 1.2 (1.0-2.8); Alkaline Phosphatase 119 U/L (38-126); Aspartate Aminotransferase 35 IU/L (14-36); Bilirubin Total 0.8 mg/dL (0.2-1.3); Blood Urea Nitrogen 18 mg/dL (7-17); Calcium 10.1 mg/dL (8.4-10.2); Carbon Dioxide 24 mmol/L (22-32); Chloride 106 mmol/L (98-107); Cholesterol 245 mg/dL (140-199); Estimated Glomerular Filt Rate 55.8 mL/min (>60); Globulin 3.6 g/dL (1.7-4.1); Glucose 113 mg/dL (80-110); HDL Cholesterol 45 mg/dL (40-60); HEMOLYSIS 18 (0-50); LDL Cholesterol Calculated 171 mg/dL (<100); Potassium 5.3 mmol/L (3.4-5.1); Sodium 140 mmol/L (137-145); Triglycerides 147 mg/dL (35-150)
[2019-12-05 14:01] LABS: Add Manual Diff / Slide Review NO; Basophils Absolute Auto 0 /uL (0-100); Basophils Percent Auto 0.6 % (0-2); Eosinophils Absolute Auto 0 /uL (0-450); Eosinophils Percent Auto 0.4 % (2-4); Hemoglobin 16.8 g/dL (12.0-16.0); Lymphocytes Absolute Auto 1700 /uL (1100-4500); Lymphocytes Percent Auto 21.9 % (25-40); Mean Corpuscular HGB Conc 34.2 % (30-36); Mean Corpuscular Hemoglobin 32.6 PG (26-34); Mean Corpuscular Volume 95.3 fL (80-100); Monocytes Absolute Auto 500 /uL (0-900); Monocytes Percent Auto 7.1 % (3-14); Neutrophils Absolute Auto 5300 /uL (1500-7000); Platelet Count 181 X10^3/uL (150-400); Red Blood Cell Count 5.14 X10^6/uL (4.0-5.2); Red Cell Distribution Width 13.8 % (11.6-14.8); White Blood Cell Count 7.6 X10^3/uL (4.5-11.0)
[2019-12-05 14:02] LABS: Prothrombin Time 22.5 SECONDS (10.1-12.7)
[2019-12-05 14:24] LABS: Thyroid Stimulating Hormone 2.79 uIU/mL (0.47-4.68)
[2019-12-05 15:18] LABS: Creatinine Urine Random 14.2 mg/dL
[2019-12-05 15:22] LABS: Microalbumi Creatinin Ratio Ur 211.2 ug/mg CR (<30)
== END ==
PROVIDERS: PCP Family Medicine; Referring Provider Physician Assistant; Visit Provider Family Medicine
DX: G45.9 Transient cerebral ischemic attack, unspecified (principal); I48.91 Unspecified atrial fibrillation; Z79.01 Long term (current) use of anticoagulants; E03.9 Hypothyroidism, unspecified; E11.9 Type 2 diabetes mellitus without complications; E78.2 Mixed hyperlipidemia; I10 Essential (primary) hypertension; I50.9 Heart failure, unspecified; N19 Unspecified kidney failure
CPT/HCPCS: 36415; 80053; 80061; 82043; 82570; 83036; 83735; 84443; 85025; 85610

== ENCOUNTER → 2020-08-17 13:28 | Outpatient (CLI) | payer OTHER, SELFPAY ==
[2020-08-17 15:01] LABS: Add Manual Diff / Slide Review NO; Basophils Absolute Auto 100 /uL (0-100); Basophils Percent Auto 0.8 % (0-2); Eosinophils Absolute Auto 100 /uL (0-450); Eosinophils Percent Auto 0.9 % (2-4); Hematocrit 43.9 % (36-46); Hemoglobin 14.5 g/dL (12.0-16.0); Lymphocytes Absolute Auto 1900 /uL (1100-4500); Lymphocytes Percent Auto 30.2 % (25-40); Mean Corpuscular Hemoglobin 31.8 PG (26-34); Mean Corpuscular Volume 96.5 fL (80-100); Monocytes Absolute Auto 400 /uL (0-900); Monocytes Percent Auto 6.1 % (3-14); Neutrophils Absolute Auto 3900 /uL (1500-7000); Platelet Count 166 X10^3/uL (150-400); Red Blood Cell Count 4.55 X10^6/uL (4.0-5.2); Red Cell Distribution Width 14.1 % (11.6-14.8); White Blood Cell Count 6.2 X10^3/uL (4.5-11.0)
[2020-08-17 15:18] LABS: Alanine Aminotransferase 31 IU/L (<35); Albumin 3.9 g/dL (3.5-5.0); Albumin Globulin Ratio 1.3 (1.0-2.8); Alkaline Phosphatase 85 U/L (38-126); Aspartate Aminotransferase 35 IU/L (14-36); Bilirubin Total 0.4 mg/dL (0.2-1.3); Blood Urea Nitrogen 22 mg/dL (7-17); Calcium 9.2 mg/dL (8.4-10.2); Carbon Dioxide 24 mmol/L (22-32); Chloride 109 mmol/L (98-107); Estimated Glomerular Filt Rate 55.8 mL/min (>60); Glucose 128 mg/dL (80-110); HEMOLYSIS < 15 (0-50); Sodium 137 mmol/L (137-145); Total Protein 6.9 g/dL (6.3-8.2)
== END ==
PROVIDERS: PCP Family Medicine; Referring Provider Nurse Practitioner; Visit Provider Nurse Practitioner
DX: I48.20 Chronic atrial fibrillation, unspecified (principal); I42.8 Other cardiomyopathies
CPT/HCPCS: 36415; 80053; 85025

== ENCOUNTER → 2020-12-29 12:19 | Outpatient (CLI) | payer OTHER, SELFPAY ==
[2020-12-29] MEDS: COVID-19 VACC, Ad26(JANSSEN)/PF 0.5 ML IM (12:45)
== END ==
PROVIDERS: PCP Family Medicine; Visit Provider Internal Medicine
DX: Z23 Encounter for immunization (principal)
CPT/HCPCS: 0031A; 91303

== ENCOUNTER → 2021-01-10 17:12 | Outpatient (CLI) | payer OTHER, SELFPAY ==
[2021-01-10 17:51] LABS: Hemoglobin A1C% w Est Avg Glu 7.5 % (4.0-6.0)
[2021-01-10 17:56] LABS: Alanine Aminotransferase 63 IU/L (<35); Albumin 4.1 g/dL (3.5-5.0); Albumin Globulin Ratio 1.3 (1.0-2.8); Alkaline Phosphatase 111 U/L (38-126); Aspartate Aminotransferase 69 IU/L (14-36); BUN Creatinine Ratio 18.3 (6-22); Bilirubin Total 0.4 mg/dL (0.2-1.3); Blood Urea Nitrogen 21 mg/dL (7-17); Calcium 10.1 mg/dL (8.4-10.2); Carbon Dioxide 26 mmol/L (22-32); Chloride 104 mmol/L (98-107); Cholesterol 254 mg/dL (140-199); Estimated Glomerular Filt Rate 47.4 mL/min (>60); Globulin 3.1 g/dL (1.7-4.1); Glucose 118 mg/dL (80-110); HDL Cholesterol 39 mg/dL (40-60); HEMOLYSIS 20 (0-50); LDL Cholesterol Calculated 157 mg/dL (<100); Potassium 5.2 mmol/L (3.4-5.1); Sodium 137 mmol/L (137-145); Total Protein 7.2 g/dL (6.3-8.2); Triglycerides 292 mg/dL (35-150)
[2021-01-10 18:27] LABS: TSH w/ Reflex to FT4 3.24 uIU/mL (0.47-4.68)
== END ==
PROVIDERS: PCP Family Medicine; Referring Provider Family Medicine; Visit Provider Family Medicine
DX: E03.9 Hypothyroidism, unspecified (principal); E11.9 Type 2 diabetes mellitus without complications; G45.9 Transient cerebral ischemic attack, unspecified; I10 Essential (primary) hypertension; Z86.79 Personal history of other diseases of the circulatory system; Z98.890 Other specified postprocedural states; E78.2 Mixed hyperlipidemia
CPT/HCPCS: 36415; 80053; 80061; 83036; 84443

== ENCOUNTER → 2022-08-23 12:51 | Outpatient (CLI) | payer MEDICARE, SELFPAY ==
[2022-08-23 13:49] LABS: Add Manual Diff / Slide Review NO; Basophils Absolute Auto 0 /uL (0-100); Basophils Percent Auto 0.6 % (0-2); Eosinophils Absolute Auto 0 /uL (0-450); Eosinophils Percent Auto 0.2 % (2-4); Hematocrit 43.8 % (36-46); Hemoglobin 14.1 g/dL (12.0-16.0); Lymphocytes Absolute Auto 1500 /uL (1100-4500); Lymphocytes Percent Auto 18.1 % (25-40); Mean Corpuscular HGB Conc 32.1 % (30-36); Mean Corpuscular Volume 87.4 fL (80-100); Monocytes Absolute Auto 400 /uL (0-900); Monocytes Percent Auto 4.4 % (3-14); Neutrophils Absolute Auto 6300 /uL (1500-7000); Neutrophils Percent Auto 76.7 % (50-75); Platelet Count 260 X10^3/uL (150-400); Red Blood Cell Count 5.01 X10^6/uL (4.0-5.2); Red Cell Distribution Width 18.8 % (11.6-14.8); White Blood Cell Count 8.2 X10^3/uL (4.5-11.0)
[2022-08-23 14:15] LABS: Hemoglobin A1C% w Est Avg Glu 6.1 % (4.0-6.0)
[2022-08-23 14:19] LABS: HEMOLYSIS < 15 (0-50); Iron 40 ug/dL (37-170); Prothrombin Time 167.6 SECONDS (10.1-12.7)
[2022-08-23 14:21] LABS: Alanine Aminotransferase 37 IU/L (<35); Albumin 4.1 g/dL (3.5-5.0); Alkaline Phosphatase 107 U/L (38-126); Aspartate Aminotransferase 64 IU/L (14-36); Bilirubin Total 0.5 mg/dL (0.2-1.3); Blood Urea Nitrogen 24 mg/dL (7-17); Calcium 10.3 mg/dL (8.4-10.2); Carbon Dioxide 20 mmol/L (22-32); Chloride 102 mmol/L (98-107); Estimated Glomerular Filt Rate 32 mL/min (>60); Glucose 222 mg/dL (80-110); HEMOLYSIS < 15 (0-50); Potassium 4.3 mmol/L (3.4-5.1); Sodium 139 mmol/L (137-145); Total Protein 8.1 g/dL (6.3-8.2); Uric Acid 6.4 mg/dL (2.5-6.2)
[2022-08-23 14:31] LABS: Percent Iron Saturation 10 % (15-50); Total Iron Binding Capacity 421 ug/dL (265-497); Transferrin 316 mg/dL (206-381)
[2022-08-23 14:40] LABS: INR 14.2 (0.9-1.3)
[2022-08-23 15:08] LABS: Vitamin B12 743 pg/mL (239-931)
[2022-08-23 16:56] LABS: Vitamin D 25 Hydroxy (D3) 25.8 ng/mL (30.0-100.0)
== END ==
PROVIDERS: PCP Family Medicine; Referring Provider Family Medicine; Visit Provider Family Medicine
DX: I10 Essential (primary) hypertension (principal); I48.91 Unspecified atrial fibrillation; N18.2 Chronic kidney disease, stage 2 (mild); Z87.39 Personal history of other diseases of the musculoskeletal system and connective tissue; Z90.3 Acquired absence of stomach [part of]; Z95.810 Presence of automatic (implantable) cardiac defibrillator
CPT/HCPCS: 36415; 80053; 82306; 82607; 83036; 83540; 83550; 84550; 85025; 85610

== ENCOUNTER → 2022-09-08 15:58 | Outpatient (CLI) | payer MEDICARE, SELFPAY ==
[2022-09-08 16:32] LABS: Add Manual Diff / Slide Review NO; Basophils Absolute Auto 0 /uL (0-100); Basophils Percent Auto 0.4 % (0-2); Eosinophils Absolute Auto 0 /uL (0-450); Eosinophils Percent Auto 0.3 % (2-4); Hematocrit 43.8 % (36-46); Hemoglobin 14.1 g/dL (12.0-16.0); Lymphocytes Absolute Auto 1900 /uL (1100-4500); Lymphocytes Percent Auto 26.7 % (25-40); Mean Corpuscular HGB Conc 32.2 % (30-36); Mean Corpuscular Volume 87.2 fL (80-100); Monocytes Absolute Auto 400 /uL (0-900); Monocytes Percent Auto 6.1 % (3-14); Neutrophils Absolute Auto 4600 /uL (1500-7000); Neutrophils Percent Auto 66.5 % (50-75); Platelet Count 227 X10^3/uL (150-400); Red Blood Cell Count 5.02 X10^6/uL (4.0-5.2); Red Cell Distribution Width 17.1 % (11.6-14.8)
[2022-09-08 16:36] LABS: Alanine Aminotransferase 41 IU/L (<35); Albumin 3.9 g/dL (3.5-5.0); Albumin Globulin Ratio 1.1 (1.0-2.8); Alkaline Phosphatase 91 U/L (38-126); Aspartate Aminotransferase 56 IU/L (14-36); Bilirubin Total 0.9 mg/dL (0.2-1.3); Blood Urea Nitrogen 27 mg/dL (7-17); Calcium 9.7 mg/dL (8.4-10.2); Carbon Dioxide 23 mmol/L (22-32); Chloride 103 mmol/L (98-107); Estimated Glomerular Filt Rate 57 mL/min (>60); Globulin 3.6 g/dL (1.7-4.1); Glucose 182 mg/dL (80-110); HEMOLYSIS 32 (0-50); Potassium 4.9 mmol/L (3.4-5.1); Sodium 137 mmol/L (137-145); Total Protein 7.5 g/dL (6.3-8.2)
[2022-09-08 17:44] LABS: Prothrombin Time 56.7 SECONDS (10.1-12.7)
[2022-09-08 19:11] LABS: INR 4.9 (0.9-1.3)
== END ==
PROVIDERS: PCP Family Medicine; Referring Provider Family Medicine; Visit Provider Family Medicine
DX: E11.9 Type 2 diabetes mellitus without complications (principal); Z79.01 Long term (current) use of anticoagulants; Z51.81 Encounter for therapeutic drug level monitoring
CPT/HCPCS: 36415; 80053; 85025; 85610

== ENCOUNTER → 2023-04-12 14:10 | Outpatient (CLI) | payer MEDICARE, SELFPAY ==
[2023-04-12 14:53] LABS: Add Manual Diff / Slide Review NO; Basophils Absolute Auto 0 /uL (0-100); Basophils Percent Auto 0.6 % (0-2); Eosinophils Absolute Auto 100 /uL (0-450); Eosinophils Percent Auto 0.9 % (2-4); Hematocrit 32.3 % (36-46); Hemoglobin 10.1 g/dL (12.0-16.0); Lymphocytes Absolute Auto 2300 /uL (1100-4500); Mean Corpuscular HGB Conc 31.3 % (30-36); Mean Corpuscular Volume 76.6 fL (80-100); Monocytes Absolute Auto 600 /uL (0-900); Monocytes Percent Auto 7.1 % (3-14); Neutrophils Absolute Auto 5000 /uL (1500-7000); Neutrophils Percent Auto 62.4 % (50-75); Platelet Count 288 X10^3/uL (150-400); Red Blood Cell Count 4.22 X10^6/uL (4.0-5.2); Red Cell Distribution Width 16.9 % (11.6-14.8)
[2023-04-12 15:00] LABS: INR 1.4 (0.9-1.3); Prothrombin Time 16.1 SECONDS (10.1-12.7)
[2023-04-12 16:12] LABS: Alanine Aminotransferase 18 IU/L (<35); Albumin 3.9 g/dL (3.5-5.0); Albumin Globulin Ratio 1.1 (1.0-2.8); Alkaline Phosphatase 145 U/L (38-126); Aspartate Aminotransferase 27 IU/L (14-36); BUN Creatinine Ratio 23.7 (6-22); Bilirubin Total 0.4 mg/dL (0.2-1.3); Blood Urea Nitrogen 27 mg/dL (7-17); Calcium 9.5 mg/dL (8.4-10.2); Carbon Dioxide 23 mmol/L (22-32); Chloride 103 mmol/L (98-107); Estimated Glomerular Filt Rate 53 mL/min (>60); Globulin 3.5 g/dL (1.7-4.1); Glucose 168 mg/dL (80-110); HEMOLYSIS < 15 (0-50); Potassium 5.1 mmol/L (3.4-5.1); Sodium 135 mmol/L (137-145); Total Protein 7.4 g/dL (6.3-8.2)
[2023-04-13 03:09] LABS: x Labcorp Estim. Avg Glu (eAG) 143 mg/dL (.); x Labcorp Hemoglobin A1c 6.6 % (4.8-5.6)
== END ==
PROVIDERS: PCP Family Medicine; Referring Provider Family Medicine; Visit Provider Family Medicine
DX: I48.91 Unspecified atrial fibrillation; E11.9 Type 2 diabetes mellitus without complications; N18.9 Chronic kidney disease, unspecified
CPT/HCPCS: 36415; 80053; 83036; 85025; 85610

== ENCOUNTER → 2023-11-29 11:51 | Outpatient (CLI) | payer MEDICARE, SELFPAY ==
[2023-11-29 12:32] LABS: Add Manual Diff / Slide Review NO; Basophils Absolute Auto 0 /uL (0-100); Basophils Percent Auto 0.5 % (0-2); Eosinophils Absolute Auto 0 /uL (0-450); Eosinophils Percent Auto 0.5 % (2-4); Hemoglobin 13.1 g/dL (12.0-16.0); Lymphocytes Absolute Auto 1700 /uL (1100-4500); Lymphocytes Percent Auto 29.5 % (25-40); Mean Corpuscular HGB Conc 32.7 % (30-36); Mean Corpuscular Hemoglobin 26.5 PG (26-34); Mean Corpuscular Volume 80.9 fL (80-100); Monocytes Absolute Auto 400 /uL (0-900); Neutrophils Absolute Auto 3600 /uL (1500-7000); Neutrophils Percent Auto 62.5 % (50-75); Platelet Count 231 X10^3/uL (150-400); Red Blood Cell Count 4.95 X10^6/uL (4.0-5.2); Red Cell Distribution Width 18.9 % (11.6-14.8); White Blood Cell Count 5.8 X10^3/uL (4.5-11.0)
[2023-11-29 12:38] LABS: INR 1.6 (0.9-1.3); Prothrombin Time 18.3 SECONDS (9.4-12.5)
[2023-11-29 12:45] LABS: HEMOLYSIS < 15 (0-50); Iron 64 ug/dL (37-170)
[2023-11-29 12:51] LABS: Alanine Aminotransferase 21 IU/L (<35); Albumin 3.8 g/dL (3.5-5.0); Alkaline Phosphatase 159 U/L (38-126); Aspartate Aminotransferase 34 IU/L (14-36); BUN Creatinine Ratio 16.8 (6-22); Bilirubin Total 0.7 mg/dL (0.2-1.3); Blood Urea Nitrogen 24 mg/dL (7-17); Calcium 9.9 mg/dL (8.4-10.2); Carbon Dioxide 22 mmol/L (22-32); Chloride 103 mmol/L (98-107); Cholesterol 184 mg/dL (140-199); Estimated Glomerular Filt Rate 40 mL/min (>60); Glucose 146 mg/dL (80-110); HDL Cholesterol 41 mg/dL (40-60); HEMOLYSIS < 15 (0-50); LDL Cholesterol Calculated 111 mg/dL (<100); Potassium 5.3 mmol/L (3.4-5.1); Sodium 137 mmol/L (137-145); Total Protein 7.8 g/dL (6.3-8.2); Triglycerides 159 mg/dL (35-150); Uric Acid 5.5 mg/dL (2.5-6.2)
[2023-11-29 12:59] LABS: Percent Iron Saturation 18 % (15-50); Total Iron Binding Capacity 355 ug/dL (265-497); Transferrin 292 mg/dL (206-381)
[2023-11-29 13:18] LABS: TSH w/ Reflex to FT4 2.99 uIU/mL (0.47-4.68)
[2023-11-29 13:20] LABS: Ferritin 32 ng/mL (11-264)
[2023-11-29 15:46] LABS: Vitamin D 25 Hydroxy (D3) 14.4 ng/mL (30.0-100.0)
[2023-11-29 16:12] LABS: Microalbumin Urine Random 6.6 mg/dL (0-1.6)
== END ==
PROVIDERS: PCP Family Medicine; Referring Provider Family Medicine; Visit Provider Family Medicine
DX: N18.2 Chronic kidney disease, stage 2 (mild) (principal); I48.91 Unspecified atrial fibrillation; E11.9 Type 2 diabetes mellitus without complications; I10 Essential (primary) hypertension; E03.9 Hypothyroidism, unspecified; E78.2 Mixed hyperlipidemia; D64.9 Anemia, unspecified; M10.9 Gout, unspecified; D50.8 Other iron deficiency anemias; Z79.01 Long term (current) use of anticoagulants
CPT/HCPCS: 36415; 80053; 80061; 82043; 82306; 82570; 82728; 83036; 83540; 83550; 84443; 84550; 85025; 85610

== ENCOUNTER → 2024-09-11 10:52 | Outpatient (CLI) | payer MEDICARE, SELFPAY ==
[2024-04-07 13:43] VITALS: BMI 41.0
[2024-09-11 11:37] LABS: Hemoglobin A1C% w Est Avg Glu 6.9 % (4.0-6.0)
[2024-09-11 11:49] LABS: Alanine Aminotransferase 26 IU/L (<35); Albumin 4.3 g/dL (3.5-5.0); Albumin Globulin Ratio 1.3 (1.0-2.8); Alkaline Phosphatase 110 U/L (38-126); Aspartate Aminotransferase 36 IU/L (14-36); BUN Creatinine Ratio 20.2 (6-22); Bilirubin Total 0.6 mg/dL (0.2-1.3); Blood Urea Nitrogen 26 mg/dL (7-17); Calcium 9.8 mg/dL (8.4-10.2); Carbon Dioxide 23 mmol/L (22-32); Chloride 105 mmol/L (98-107); Cholesterol 186 mg/dL (140-199); Estimated Glomerular Filt Rate 45 mL/min (>60); Globulin 3.4 g/dL (1.7-4.1); Glucose 156 mg/dL (80-110); HDL Cholesterol 48 mg/dL (40-60); HEMOLYSIS 21 (0-50); HEMOLYSIS < 15 (0-50); Iron 115 ug/dL (37-170); LDL Cholesterol Calculated 105 mg/dL (<100); Potassium 5.1 mmol/L (3.4-5.1); Sodium 137 mmol/L (137-145); Total Protein 7.7 g/dL (6.3-8.2); Triglycerides 166 mg/dL (35-150)
[2024-09-11 12:00] LABS: Percent Iron Saturation 31 % (15-50); Total Iron Binding Capacity 369 ug/dL (265-497); Transferrin 325 mg/dL (206-381)
[2024-09-11 12:06] LABS: Free T4, Direct Thyroxine 1.15 ng/dL (0.78-2.19)
[2024-09-11 12:20] LABS: Thyroid Stimulating Hormone 3.84 uIU/mL (0.47-4.68)
== END ==
PROVIDERS: PCP Family Medicine; Referring Provider Family Medicine; Visit Provider Family Medicine
DX: E11.9 Type 2 diabetes mellitus without complications (principal); E03.9 Hypothyroidism, unspecified; E78.2 Mixed hyperlipidemia; D64.9 Anemia, unspecified; I48.91 Unspecified atrial fibrillation; Z51.81 Encounter for therapeutic drug level monitoring; Z79.01 Long term (current) use of anticoagulants
CPT/HCPCS: 36415; 80053; 80061; 83036; 83540; 83550; 84439; 84443